=== PATIENT | male | born 2000 | race Caucasian/White ===

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

== ENCOUNTER 2022-06-10 22:04 | Emergency (ER) | payer OTHER ==
[2022-06-10 22:32] VITALS: BP 136/88; PULSE 77; RESP 16; TEMP 98.1
[2022-06-11] MEDS ORDERED: KETOROLAC 15 MG/ML 1 ML VIAL IM STA (00:57)
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
== END 2022-06-11 01:25 | disposition home or self-care (01) ==
LOC: EC 22:04
DX: G89.29 Other chronic pain (principal); M25.571 Pain in right ankle and joints of right foot; M79.661 Pain in right lower leg; F90.9 Attention-deficit hyperactivity disorder, unspecified type; Z88.3 Allergy status to other anti-infective agents; Z79.899 Other long term (current) drug therapy
CPT/HCPCS: 99284; J1885

== ENCOUNTER 2023-05-20 12:38 | Inpatient (IN) | payer MEDICAID, MEDICARE, OTHER ==
[2023-05-20] MEDS ORDERED: ZIPRASIDONE 20 MG VIAL IM STA (12:48)
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
[2023-05-20 22:25] LABS: HCT 41.4 % (39.0-53.0); HGB 14.4 gm/dL (13.0-17.5); MCH 30.6 pg (25.0-35.0); MCHC 34.8 g/dL (31.0-37.0); MCV 87.9 fL (80.0-100.0); Mean Platelet Volume 8.1; Platelet Count 191 k/uL (150-450); RBC 4.71 m/uL (4.30-5.90); RDW 12.7 % (11.5-15.5)
[2023-05-20 22:43] LABS: ALT 23 U/L (4-49); AST 36 U/L (17-59); African American GFR (CKD) >90 (>60 ml/min/1.73 sqM); Albumin 3.9 g/dL (3.5-5.0); Alkaline Phosphatase 68 U/L (38-126); Anion Gap 9 mmol/L; Blood Urea Nitrogen 10 mg/dL (9-20); Calcium 9.3 mg/dL (8.4-10.2); Carbon Dioxide 27 mmol/L (22-30); Chloride 102 mmol/L (98-107); Glucose 85 mg/dL (74-99); Non-African American GFR(CKD) >90 (>60 ml/min/1.73 sqM); Sodium 138 mmol/L (137-145); Total Bilirubin 0.6 mg/dL (0.2-1.3); Total Protein 6.3 g/dL (6.3-8.2)
[2023-05-20 23:23] LABS: Amorphous Sediment,Urine Occasional /hpf; Appearance,Urine Turbid (Clear); Bilirubin,Urine Negative (Negative); Blood,Urine Negative (Negative); Color,Urine Colorless; Glucose,Urine (UA) Negative (Negative); Ketones,Urine Negative (Negative); Leukocyte Esterase,Urine Negative (Negative); Mucus,Urine Rare /hpf; Nitrite,Urine Negative (Negative); Protein,Urine Negative (Negative); Specific Gravity,Urine 1.014 (1.001-1.035); Urobilinogen,Urine <2.0 mg/dL (<2.0)
[2023-05-20 23:35] LABS: Amphetamine Screen,Urine Not Detected (NotDetected); Barbiturate Screen,Urine Not Detected (NotDetected); Benzodiazepines Screen,Urine Detected (NotDetected); Cocaine Screen,Urine Not Detected (NotDetected); Methadone Screen, Urine Not Detected (NotDetected); Opiate Screen,Urine Not Detected (NotDetected); Oxycodone Screen, Urine Not Detected (NotDetected); Phencyclidine Screen,Urine Not Detected (NotDetected); Tricyclic Antidepressant,Urine Not Detected (NotDetected); Urn Cannabinoid Scrn Detected (NotDetected)
[2023-05-22] MEDS: MELATONIN 5 MG TABLET PO PRN ×2 (00:22→20:09)
[2023-05-23] MEDS ORDERED: MELATONIN 5 MG TABLET PO PRN (09:08)
[2023-05-23] MEDS ORDERED: PALIPERIDONE 6 MG TAB.ER.24 PO SCH (09:30)
[2023-05-23] MEDS ORDERED: DIVALPROEX ER 250 MG TAB.ER.24H PO SCH (09:30)
[2023-05-23] MEDS ORDERED: MAGNESIUM HYDROXIDE 2,400 MG/30 ML CUP PO PRN (16:55)
[2023-05-23] MEDS ORDERED: LORazepam 1 MG TAB PO PRN (16:55)
[2023-05-23] MEDS: MELATONIN 5 MG TABLET PO SCH (20:13)
[2023-05-23] MEDS: DIVALPROEX ER 250 MG TAB.ER.24H PO SCH (20:13)
[2023-05-23] MEDS: haloperidoL 5 MG TAB PO PRN (20:13)
[2023-05-23] MEDS: IBUPROFEN 600 MG TAB PO PRN (22:34)
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
[2023-05-24] MEDS ORDERED: PALIPERIDONE 6 MG TAB.ER.24 PO SCH (09:00)
[2023-05-24] MEDS: DIVALPROEX ER 250 MG TAB.ER.24H PO SCH (09:06)
[2023-05-24] MEDS: NICOTINE 14MG/24HR PATCH TRANSDERM SCH (09:09)
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
[2023-05-24] MEDS: MAG HYDROX/AL HYDROX/SIMETH 30 ML CUP PO PRN (13:56)
[2023-05-24 16:35] LABS: Chol/HDL Ratio 2.61 Ratio; LDL Cholesterol,Calculated 57.2 mg/dL (0.0-131.0); VLDL Calculation 13.78 mg/dL (5.00-40.00)
[2023-05-24] MEDS: haloperidoL 5 MG TAB PO PRN (18:54)
[2023-05-24] MEDS: hydrOXYzine pamoate 25 MG CAP PO PRN (18:54)
[2023-05-25] MEDS: PALIPERIDONE 6 MG TAB.ER.24 PO SCH ×2 (00:17→19:56)
[2023-05-25] MEDS: MELATONIN 5 MG TABLET PO SCH ×2 (00:17→19:56)
[2023-05-25] MEDS: hydrOXYzine pamoate 25 MG CAP PO PRN ×2 (09:05→19:56)
[2023-05-25] MEDS: NICOTINE 14MG/24HR PATCH TRANSDERM SCH (09:06)
[2023-05-25] MEDS: BENZOCAINE/MENTHOL LOZENG 1 EACH LOZENGE MUCOUS MEM PRN (09:43)
[2023-05-25] MEDS ORDERED: traZODone HCL 50 MG TAB PO PRN (10:11)
--- NOTE | 2023-05-25 10:12 | P.PN ---
Progress Note - Text Progress Note Date: 05/25/23 Interval history: PAtient was seen today wandering the hallways and was agreeable to speak to wr iter in the office. Patient claims that he is fine today, he still has an irritable tone. he was demanding percocet today from proposal writer. he was also asking for "anita" as well. he continue to speak to himself and has poor eye contact. he states that his anxiety is elevated. he has poor insight/judgment. he denies any ah or vh and denies any SI or HI. claims that he slept fairly last night and did not take his invega last night. Mental status examination: General Appearance: Patient appears to be thin, stated age is alert, responding to internal stimuli, irritable at times. Patient appears to have poor hygiene and grooming. Behavior: Patient is seated without any agitated behavior. Irritable. Speech: Patient's speech is fluent and nonpressured. Rambling. Mood/Affect: Patient reports their mood is depressed, affect is congruent and constricted. Suicidality/Homicidality: Patient denies having any homicidal ideation intent or plan. He denies any suicidal ideations, no intent or plan. Perceptions: Patient denies any visual hallucinations and denies any AH. Though content/process: Bizarre content, illogical. Loose associations. focused on controlled meds. Memory and concentration: AOX3, grossly intact for the purposes of this session Judgment and insight: poor IMPRESSIONS: Schizoaffective disorder depressive type Cannabis use disorder Nicotine dependence PLAN: -Patient is admitted under involuntary status to MHU for stabilization of psychiatric symptoms and safety. Patient has not signed adult voluntary form and medication consent and is placed in patient's chart. A second certification was completed and along with petition will be filed for court. -Medications : Paliperidone by mouth 6 mg daily at bedtime for psychosis/mood stabilization. Plan will be to transition patient on the long-acting injection. Trazodone prn daily at bedtime for insomnia. -Ativan and Haldol PRN for agitation/aggression -NRT - nicotine patch -SW on board for discharge planning. Encourage patient to participate in groups to work on coping skills. Will await deferral and court date.
[2023-05-25] MEDS: haloperidoL 5 MG TAB PO PRN (19:56)
[2023-05-25] MEDS: LORazepam 2 MG/ML INJ IM PRN (21:55)
[2023-05-26] MEDS: NICOTINE 14MG/24HR PATCH TRANSDERM SCH (08:04)
[2023-05-26] MEDS: hydrOXYzine pamoate 25 MG CAP PO PRN ×2 (08:13→20:28)
[2023-05-26] MEDS: BENZOCAINE/MENTHOL LOZENG 1 EACH LOZENGE MUCOUS MEM PRN (09:14)
--- NOTE | 2023-05-26 11:18 | P.PN ---
Progress Note - Text Progress Note Date: 05/26/23 Interval history: Patient was seen today wandering the hallways and was agreeable to speak to wr klaudia in the office. patient was concerned about another patient and her getting to a phone. PAtient continues to focus on percocet. he continues to ramble at times and is illogical at times. he has less of an irritable tone. also continues to focus on discharge. he states that his anxiety is elevated. he has poor insight/judgment. he denies any ah or vh and denies any SI or HI. claims that he slept fairly last night and has been taking his meds. Mental status examination: General Appearance: Patient appears to be thin, stated age is alert, responding to internal stimuli, irritable at times, improving mildly. Patient appears to have poor hygiene and grooming. Behavior: Patient is seated without any agitated behavior. Irritable, improving mildly Speech: Patient's speech is fluent and nonpressured. Rambling. talking to self. Mood/Affect: Patient reports their mood is "a bit better", affect is congruent and constricted. Suicidality/Homicidality: Patient denies having any homicidal ideation intent or plan. He denies any suicidal ideations, no intent or plan. Perceptions: Patient denies any visual hallucinations and denies any AH. Though content/process: Bizarre content, illogical. Loose associations. focused on controlled meds and also discharge Memory and concentration: AOX3, grossly intact for the purposes of this session Judgment and insight: chronically poor IMPRESSIONS: Schizoaffective disorder depressive type Cannabis use disorder Nicotine dependence PLAN: -Patient is admitted under involuntary status to MHU for stabilization of psychiatric symptoms and safety. Patient has not signed adult voluntary form and medication consent and is placed in patient's chart. -Medications : increase Paliperidone by mouth 9 mg daily at bedtime for psychosis/mood stabilization. plan to transition onto SLOAN. melatonin qhs for sleep. Plan will be to transition patient on the long-acting injection. Trazodone prn daily at bedtime for insomnia. -Ativan and Haldol PRN for agitation/aggression -NRT - nicotine patch -SW on board for discharge planning. Encourage patient to participate in groups to work on coping skills. Will await deferral tomorrow.
[2023-05-26] MEDS: MAG HYDROX/AL HYDROX/SIMETH 30 ML CUP PO PRN (14:45)
[2023-05-26] MEDS: haloperidoL 5 MG TAB PO PRN (18:21)
[2023-05-26] MEDS: LORazepam 2 MG/ML INJ IM PRN (18:21)
[2023-05-26] MEDS: PALIPERIDONE 3 MG TAB.ER.24 PO SCH (20:28)
[2023-05-26] MEDS: MELATONIN 3 MG TABLET PO SCH (20:28)
[2023-05-26] MEDS: ACETAMINOPHEN TAB 325 MG TAB PO PRN (20:30)
[2023-05-26] MEDS: NICOTINE GUM (POLACRILEX) 2 MG GUM BUCCAL PRN (21:06)
[2023-05-27] MEDS: hydrOXYzine pamoate 25 MG CAP PO PRN (09:20)
[2023-05-27] MEDS: NICOTINE 14MG/24HR PATCH TRANSDERM SCH (09:35)
[2023-05-27] MEDS: IBUPROFEN 600 MG TAB PO PRN (11:19)
[2023-05-27] MEDS ORDERED: PALIPERIDONE IM 234 MG/1.5 ML SYG IM STA (11:24)
[2023-05-27] MEDS ORDERED: ACETAMINOPHEN TAB 500 MG TAB PO STA (11:27)
--- NOTE | 2023-05-27 13:29 | P.PN ---
Progress Note - Text Progress Note Date: 05/27/23 Interval history: Patient was seen today wandering the hallways and was agreeable to speak to wr iter in the office. Patient continues to ramble at times, continues to be fixated on pain medications. He required a Haldol and Ativan IM when necessary yesterday due to agitation. When asked about a patient spoke about not liking another patient on the unit that was "pacing me off". He failed to elaborate more on this. He continues to mumble at times, talk to himself however this is improving. He was more directable. Improvement in hygiene and grooming. Denying any irritability or mood swings. We spoke about the benefits of transitioning onto long-acting injection and patient was agreeable to take Invega Sustenna today. He claims that he spoke with his ip attorney and he signed the deferral today. he has poor insight/judgment, mildly improving. he denies any ah or vh and denies any SI or HI. claims that he slept fairly last night Mental status examination: General Appearance: Patient appears to be thin, stated age is alert, less responding to internal stimuli, more directable, improving mildly. Patient appears to have improving hygiene and grooming. Behavior: Patient is seated without any agitated behavior. not Irritable Speech: Patient's speech is fluent and nonpressured. Rambling. talking to self less Mood/Affect: Patient reports their mood is "better", affect is congruent and constricted. Suicidality/Homicidality: Patient denies having any homicidal ideation intent or plan. He denies any suicidal ideations, no intent or plan. Perceptions: Patient denies any visual hallucinations and denies any AH. Though content/process: illogical. Loose associations. focused on controlled meds and also discharge Memory and concentration: AOX3, grossly intact for the purposes of this session Judgment and insight: chronically poor, improving mildly IMPRESSIONS: Schizoaffective disorder depressive type Cannabis use disorder Nicotine dependence PLAN: -Patient is admitted under involuntary status to MHU for stabilization of psychiatric symptoms and safety. Patient has not signed adult voluntary form and medication consent and is placed in patient's chart. -Medications : Paliperidone by mouth 9 mg daily at bedtime for psychosis/mood stabilization, will taper down. SLOAN loading dose today invega sustenna 234 mg IM today and next dose will give tuesday vs tuesday. melatonin qhs for sleep. Trazodone prn daily at bedtime for insomnia. -Ativan and Haldol PRN for agitation/aggression -NRT - nicotine patch -SW on board for discharge planning. Encourage patient to participate in groups to work on coping skills. patient deferred with his ip attorney. will consider p ossible d/c to [facility] tuesday if patient is doing better and receives his second dose of invega sustenna.
[2023-05-27] MEDS: BENZOCAINE/MENTHOL LOZENG 1 EACH LOZENGE MUCOUS MEM PRN (16:06)
[2023-05-27] MEDS: LORazepam 2 MG/ML INJ IM PRN (16:25)
[2023-05-27] MEDS: HALOPERIDOL LACTATE 5 MG/ML 1 ML VIAL IM PRN (16:25)
[2023-05-27] MEDS: MELATONIN 3 MG TABLET PO SCH (21:08)
[2023-05-27] MEDS: PALIPERIDONE 3 MG TAB.ER.24 PO SCH (21:08)
[2023-05-28] MEDS: NICOTINE 14MG/24HR PATCH TRANSDERM SCH (08:04)
[2023-05-28] MEDS ORDERED: PALIPERIDONE 3 MG TAB.ER.24 PO SCH (09:00)
[2023-05-28] MEDS: IBUPROFEN 600 MG TAB PO PRN (09:36)
--- NOTE | 2023-05-28 10:47 | P.PN ---
Progress Note - Text Progress Note Date: 05/28/23 Interval history: Patient was seen today wandering the hallways and was agreeable to speak to wr klaudia. Patient continues to be focused on his pain medications. He states that he was having a headache this morning. He was agreeable to try Tylenol. He apparently was agitated yesterday while on the phone and punched the wall. He needed Haldol and Ativan IM as a when necessary for agitation yesterday. He appeared to have improvement in hygiene and grooming today. States that he slept fairly last night. He continues to ramble at times, at times illogical. He received the Invega Sustenna loading dose yesterday tolerated it well. he has chronically poor insight/judgment, mildly improving. he denies any ah or vh and denies any SI or HI. Mental status examination: General Appearance: Patient appears to be thin, stated age is alert, not responding to internal stimuli, more directable, improving mildly. Patient appears to have improving hygiene and grooming. Behavior: Patient is seated without any agitated behavior. not Irritable Speech: Patient's speech is fluent and nonpressured. Rambling. talking to self less Mood/Affect: Patient reports their mood is "ok", affect is congruent and constricted. Suicidality/Homicidality: Patient denies having any homicidal ideation intent or plan. He denies any suicidal ideations, no intent or plan. Perceptions: Patient denies any visual hallucinations and denies any AH. Though content/process: illogical. Loose associations. focused on controlled meds and also discharge Memory and concentration: AOX3, grossly intact for the purposes of this session Judgment and insight: chronically poor, improving mildly IMPRESSIONS: Schizoaffective disorder depressive type Cannabis use disorder Nicotine dependence PLAN: -Patient is admitted under involuntary status to MHU for stabilization of psychiatric symptoms and safety. Patient has not signed adult voluntary form and medication consent and is placed in patient's chart. -Medications : decrease Paliperidone by mouth 6 mg daily at bedtime for psychosis/mood stabilization, will taper down. SLOAN loading dose given on 05/27, next invega sustenna 156 mg IM will be given on tuesday. melatonin qhs for sleep. Trazodone prn daily at bedtime for insomnia. added lithium ER 450 mg daily for mood stabilization/aggression. -Ativan and Haldol PRN for agitation/aggression -NRT - nicotine patch -SW on board for discharge planning. Encourage patient to participate in groups to work on coping skills. patient deferred with his finance attorney. will consider possible d/c to [facility] tuesday if patient is doing better and receives his second dose of invega sustenna.
[2023-05-28] MEDS ORDERED: ACETAMINOPHEN TAB 500 MG TAB PO ONE (11:00)
[2023-05-28] MEDS: LITHIUM CARBONATE ER 450 MG TABLET.ER PO SCH (11:05)
[2023-05-28 11:23] LABS: Glucose,Whole Blood 89 mg/dL (70-110)
[2023-05-28] MEDS: NICOTINE GUM (POLACRILEX) 2 MG GUM BUCCAL PRN (11:54)
[2023-05-28] MEDS: LORazepam 2 MG/ML INJ IM PRN (16:58)
[2023-05-28] MEDS: HALOPERIDOL LACTATE 5 MG/ML 1 ML VIAL IM PRN (16:58)
[2023-05-28] MEDS: MAG HYDROX/AL HYDROX/SIMETH 30 ML CUP PO PRN (18:57)
[2023-05-28] MEDS: MELATONIN 3 MG TABLET PO SCH (21:44)
[2023-05-28] MEDS: PALIPERIDONE 6 MG TAB.ER.24 PO SCH (21:44)
[2023-05-29] MEDS: BENZOCAINE/MENTHOL LOZENG 1 EACH LOZENGE MUCOUS MEM PRN ×2 (02:41→09:10)
[2023-05-29] MEDS: NICOTINE 14MG/24HR PATCH TRANSDERM SCH (08:49)
[2023-05-29] MEDS: LITHIUM CARBONATE ER 450 MG TABLET.ER PO SCH (08:49)
[2023-05-29] MEDS: NICOTINE GUM (POLACRILEX) 2 MG GUM BUCCAL PRN (08:49)
[2023-05-29] MEDS: hydrOXYzine pamoate 25 MG CAP PO PRN ×2 (08:52→15:57)
--- NOTE | 2023-05-29 10:58 | P.PN ---
Progress Note - Text Progress Note Date: 05/29/23 Interval history: Patient was seen today wandering the hallways and was agreeable to speak to wr iter. The patient was near the nurse's desk talking to staff members. He appeared to be less agitated today and more directable during conversation. Continues to have fairly chronically poor insight and poor judgment. He was somewhat focused on his medications and also discharge date. He appeared to have improvement in hygiene and grooming today. States that he slept fairly last night. He continues to ramble at times, he is more logical. He received the Invega Sustenna loading dose already and tolerated it well, he is said to be due for his second dose tomorrow but she is expecting. he denies any ah or vh and denies any SI or HI. Mental status examination: General Appearance: Patient appears to be thin, stated age is alert, not responding to internal stimuli, more directable, improving mildly. Patient appears to have improving hygiene and grooming. Behavior: Patient is seated without any agitated behavior. Speech: Patient's speech is fluent and nonpressured. Rambling. talking to self less Mood/Affect: Patient reports their mood is "fine", affect is congruent and constricted. Suicidality/Homicidality: Patient denies having any homicidal ideation intent or plan. He denies any suicidal ideations, no intent or plan. Perceptions: Patient denies any visual hallucinations and denies any AH. Though content/process: illogical. Loose associations. focused on controlled me ds and also discharge. somatic Memory and concentration: AOX3, grossly intact for the purposes of this session Judgment and insight: chronically poor, improving mildly IMPRESSIONS: Schizoaffective disorder depressive type Cannabis use disorder Nicotine dependence PLAN: -Patient is admitted under involuntary status to MHU for stabilization of psychiatric symptoms and safety. Patient has not signed adult voluntary form and medication consent and is placed in patient's chart. -Medications : Paliperidone by mouth 6 mg daily at bedtime for psychosis/mood stabilization, will taper down. SLOAN loading dose given on 05/27, next invega sustenna 156 mg IM will be given on tuesday. melatonin qhs for sleep. Trazodone prn daily at bedtime for insomnia. continue lithium ER 450 mg daily for mood stabilization/aggression. -Ativan and Haldol PRN for agitation/aggression -NRT - nicotine patch -SW on board for discharge planning. Encourage patient to participate in groups to work on coping skills. patient deferred with his ip technology transactions attorney. will consider possible d/c to [facility] tuesday if patient is doing better and receives his second dose of invega sustenna.
[2023-05-29] MEDS: IBUPROFEN 600 MG TAB PO PRN (15:58)
[2023-05-29] MEDS: PALIPERIDONE 6 MG TAB.ER.24 PO SCH (20:24)
[2023-05-29] MEDS: MELATONIN 5 MG TABLET PO SCH (20:24)
[2023-05-30] MEDS: LITHIUM CARBONATE ER 450 MG TABLET.ER PO SCH (08:05)
[2023-05-30] MEDS: ACETAMINOPHEN TAB 325 MG TAB PO PRN (08:05)
[2023-05-30] MEDS: NICOTINE 14MG/24HR PATCH TRANSDERM SCH (08:05)
[2023-05-30] MEDS: BENZOCAINE/MENTHOL LOZENG 1 EACH LOZENGE MUCOUS MEM PRN ×3 (09:28→23:09)
[2023-05-30] MEDS ORDERED: PALIPERIDONE IM 156 MG/ML SYG IM STA (09:49)
[2023-05-30] MEDS ORDERED: ZIPRASIDONE 20 MG VIAL IM STA (09:57)
[2023-05-30] MEDS: LORazepam 2 MG/ML INJ IM PRN (09:59)
[2023-05-30] MEDS ORDERED: ZIPRASIDONE 20 MG VIAL IM ONE (10:00)
[2023-05-30] MEDS ORDERED: HALOPERIDOL LACTATE 5 MG/ML 1 ML VIAL IM PRN (10:58)
--- NOTE | 2023-05-30 11:08 | P.MHFACE ---
Face to Face Restrain/Seclus - Evaluation Patient's Immediate Situation: Endangers self safety, Endangers others' safety, Endangers staff safety Patient's Immediate Situation - Comment: patient was seen by financial writer for follow up and was agitated when discussing discharge planning going to residential. Patient adamnatly refused residential and became agitated, aggressive, yelling and threatening. he postured as to fight and was slamming things in the hallways. MR Marcial was called. Patient's Reaction to the Intervention: Uncooperative, Hostile, Belligerent, Aggressive, Combative, Resistive to care Patient's Reaction to the Intervention - Comment: uncooperative, aggressive, threatening. Patient's Medical & Behavioral Condition: Awake, Agitated Patient's Medical & Behavioral Condition - Comment: schizophrenia Need to Continue or Terminate Restraint or Seclusion: Continue Need to Continue or Terminate Restraint/Seclusion - Comment: patient received IM geodon and ativan, was directed to the secclusion room with assistance from staff and agreed to lay down on the bed until medications took hold. Face to Face Eval of Restraint Date: 05/30/23 Face to Face Eval of Restraint Time: 10:15
--- NOTE | 2023-05-30 11:14 | P.PN ---
Progress Note - Text Progress Note Date: 05/30/23 Interval history: Patient was seen today wandering the hallways and was agreeable to speak to wr klaudia. Patient was initially cooperative with policy writer however was rambling at times, illogical. He claims that his mood is "fine" and denies any depression or anxiety at this time. He continues to be fairly somatically preoccupied and continues to focus on controlled pain medications. Continues to have fairly poor insight and judgment. Poor decision making. States that he slept fairly last night. He appeared to have improvement in hygiene and grooming today. he denies any ah or vh and denies any SI or HI. while discussing dishcarge planning patient became loud, aggressive and beligerent and adamantly refused going to [facility], due to escalation of patients aggression he was asked to leave the room and ended the interview. Mr rollins was called shortly afterwards and pt was given IMs and was escorted to the seccludion room. Mental status examination: General Appearance: Patient appears to be thin, stated age is alert, not responding to internal stimuli, more directable, improving mildly. Patient appears to have improving hygiene and grooming. Behavior: Patient is seated without any agitated behavior. uncoopertaive today Speech: Patient's speech is fluent and nonpressured. Rambling. talking to self Mood/Affect: Patient reports their mood is "ok", affect is congruent and irritable, impulsive. Suicidality/Homicidality: Patient denies having any homicidal ideation intent or plan. He denies any suicidal ideations, no intent or plan. Perceptions: Patient denies any visual hallucinations and denies any AH. Though content/process: illogical. Loose associations. focused on controlled meds and also discharge. somatic Memory and concentration: AOX3, grossly intact for the purposes of this session Judgment and insight: chronically poor IMPRESSIONS: Schizoaffective disorder depressive type Cannabis use disorder Nicotine dependence PLAN: -Patient is admitted under involuntary status to MHU for stabilization of psychiatric symptoms and safety. Patient has not signed adult voluntary form and medication consent and is placed in patient's chart. -Medications : d/c Paliperidone by mouth and will not give second dose of INvega SLOAN today. Will switch patient to Prolixin 5 mg bid for psychosis/mood stabilization. will need to eventually transition patient onto SLOAN. melatonin qhs for sleep. Trazodone prn daily at bedtime for insomnia. continue lithium ER 450 mg daily for mood stabilization/aggression, consider switching to depakote or other mood stabilizer if not helping. -Ativan and Haldol PRN for agitation/aggression -NRT - nicotine patch -SW on board for discharge planning. Encourage patient to participate in groups to work on coping skills. patient deferred with his litigation attorney associate. patient adamantly is refusing [facility] placement and communicated this with [facility], will look at discharging back to his apartment with increased [facility] services upon release.
[2023-05-30] MEDS: NICOTINE GUM (POLACRILEX) 2 MG GUM BUCCAL PRN (11:56)
[2023-05-30] MEDS: MAG HYDROX/AL HYDROX/SIMETH 30 ML CUP PO PRN (13:50)
[2023-05-30] MEDS: MELATONIN 5 MG TABLET PO SCH (20:42)
[2023-05-30] MEDS: hydrOXYzine pamoate 25 MG CAP PO PRN (23:09)
[2023-05-31] MEDS: BENZOCAINE/MENTHOL LOZENG 1 EACH LOZENGE MUCOUS MEM PRN ×2 (08:44→12:20)
[2023-05-31] MEDS: LITHIUM CARBONATE ER 450 MG TABLET.ER PO SCH (08:44)
[2023-05-31] MEDS: NICOTINE GUM (POLACRILEX) 2 MG GUM BUCCAL PRN (08:51)
[2023-05-31] MEDS: NICOTINE 14MG/24HR PATCH TRANSDERM SCH (08:59)
--- NOTE | 2023-05-31 11:46 | P.PN ---
Progress Note - Text Progress Note Date: 05/31/23 Interval history: Patient was seen today wandering the hallways and also participating in [employer] group and was agreeable to speak to administrative underwriter. He appeared to have improvement in hygiene and grooming today. Patient states that he called his uncle to come and pick him up today in the afternoon for discharge. He continues to be irrational, irritable and hostile with administrative underwriter. He was upset when he found out that he was not being discharged today. He was illogical at times, defensive and intrusive. he denies any ah or vh and denies any SI or HI. was not able to reflect back on what had occured yesterday and states that he didnt want to go to [facility] because "thats where my trauma started". while discussing dishcarge planning patient became loud, aggressive. Mental status examination: General Appearance: Patient appears to be thin, stated age is alert, not responding to internal stimuli, less directable, improving mildly. Patient appears to have improving hygiene and grooming. Behavior: Patient is seated without any agitated behavior. uncoopertaive today/superficial. Speech: Patient's speech is fluent and nonpressured. Rambling. Mood/Affect: Patient reports their mood is "ok", affect is congruent and irritable, impulsive. Suicidality/Homicidality: Patient denies having any homicidal ideation intent or plan. He denies any suicidal ideations, no intent or plan. Perceptions: Patient denies any visual hallucinations and denies any AH. Though content/process: illogical. Loose associations. focused on controlled meds and also discharge. somatic Memory and concentration: AOX3, grossly intact for the purposes of this session Judgment and insight: chronically poor IMPRESSIONS: Schizoaffective disorder depressive type Cannabis use disorder Nicotine dependence PLAN: -Patient is admitted under involuntary status to MHU for stabilization of psychiatric symptoms and safety. Patient has not signed adult voluntary form and medication consent and is placed in patient's chart. -Medications : increase Prolixin 5 mg tid for psychosis/mood stabilization. will need to eventually transition patient onto SLOAN. melatonin qhs for sleep. increase Trazodone 150 mg daily at bedtime for insomnia. discontinue lithium ER due to ineffectiveness and replace with depakote 1000 mg qhs for mood stabilization/aggression -Ativan and Haldol PRN for agitation/aggression -NRT - nicotine patch -SW on board for discharge planning. Encourage patient to participate in groups to work on coping skills. patient deferred with his attorney law clerk. will look at discharging back to his apartment with increased [facility] services upon release. patient is not yet stable for psychiatric perspective, is bizarre, irratinal and impulsive, will need to transition patient onto SLOAN.
[2023-05-31] MEDS: DIVALPROEX ER 500 MG TAB.ER.24H PO SCH (21:11)
[2023-05-31] MEDS: MELATONIN 5 MG TABLET PO SCH (21:12)
[2023-05-31] MEDS: traZODone HCL 50 MG TAB PO SCH (21:12)
[2023-06-01] MEDS: NICOTINE GUM (POLACRILEX) 2 MG GUM BUCCAL PRN (08:55)
[2023-06-01] MEDS: NICOTINE 14MG/24HR PATCH TRANSDERM SCH (08:55)
[2023-06-01] MEDS: ACETAMINOPHEN TAB 325 MG TAB PO PRN (08:57)
[2023-06-01 09:02] VITALS: RESP 20
[2023-06-01] MEDS: BENZOCAINE/MENTHOL LOZENG 1 EACH LOZENGE MUCOUS MEM PRN (09:34)
[2023-06-01] MEDS ORDERED: fluPHENAZine DECANOATE 25 MG/ML 5ML MDV IM SCH (12:00)
--- NOTE | 2023-06-01 12:34 | P.PN ---
Progress Note - Text Progress Note Date: 06/01/23 Interval history: Patient was seen today wandering the hallways and also participating in activ [employer] group and was agreeable to speak to check writer. Patient states that he is feeling a lot calmer today. He claimed that he is tolerating medications fairly well. He is denying any side effects at this time. He states that he has good friends and support at home. We spoke more about discharge planning. He is agreeable to take the long-acting injection today and hopeful for discharge tomorrow. States that he is trying to go to groups apart to space this as he can. Showing an improvement in impulsivity and clear thoughts, more directable. he denies any ah or vh and denies any SI or HI. Mental status examination: General Appearance: Patient appears to be thin, stated age is alert, not responding to internal stimuli, directable, improving mildly. Patient appears to have improving hygiene and grooming. Behavior: Patient is seated without any agitated behavior. Her cooperative today. Speech: Patient's speech is fluent and nonpressured. Mood/Affect: Patient reports their mood is "ok", affect is congruent and improving Suicidality/Homicidality: Patient denies having any homicidal ideation intent or plan. He denies any suicidal ideations, no intent or plan. Perceptions: Patient denies any visual hallucinations and denies any AH. Though content/process: illogical. Loose associations. focused on controlled meds and also discharge. somatic Memory and concentration: AOX3, grossly intact for the purposes of this session Judgment and insight: chronically poor, improving mildly IMPRESSIONS: Schizoaffective disorder depressive type Cannabis use disorder Nicotine dependence PLAN: -Patient is admitted under involuntary status to MHU for stabilization of psychiatric symptoms and safety. Patient has not signed adult voluntary form and medication consent and is placed in patient's chart. -Medications : Prolixin 5 mg tid for psychosis/mood stabilization. will give Prolixin D 37.5 mg IM today, next dose will be due in 2 weeks. melatonin qhs for sleep. Trazodone 150 mg daily at bedtime for insomnia. continue depakote 1000 mg qhs for mood stabilization/aggression -Ativan and Haldol PRN for agitation/aggression -NRT - nicotine patch -SW on board for discharge planning. Encourage patient to participate in groups to work on coping skills. patient deferred with his staple cutter. will look at discharging back to his apartment with increased [facility] services and next step. hopeful for discharge tomorrow.
[2023-06-01] MEDS: MAG HYDROX/AL HYDROX/SIMETH 30 ML CUP PO PRN (18:37)
[2023-06-01] MEDS: traZODone HCL 50 MG TAB PO SCH (21:12)
[2023-06-01] MEDS: MELATONIN 5 MG TABLET PO SCH (21:12)
[2023-06-01] MEDS: DIVALPROEX ER 500 MG TAB.ER.24H PO SCH (21:12)
[2023-06-02] MEDS: NICOTINE 14MG/24HR PATCH TRANSDERM SCH (08:43)
[2023-06-02 08:47] VITALS: BP 143/79; PULSE 77; TEMP 97
[2023-06-02] MEDS: NICOTINE GUM (POLACRILEX) 2 MG GUM BUCCAL PRN (08:55)
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
== END 2023-06-02 12:32 | disposition home or self-care (01) | DRG 750 ==
LOC: EC 12:38 → 3MHU 05-23 16:50
PROVIDERS: ADMIT Psychiatry & Neurology Psychiatry; ATTEND Psychiatry & Neurology Psychiatry
DX: F25.1 Schizoaffective disorder, depressive type (principal); F12.10 Cannabis abuse, uncomplicated; F17.210 Nicotine dependence, cigarettes, uncomplicated; F43.10 Post-traumatic stress disorder, unspecified; F43.20 Adjustment disorder, unspecified; F79 Unspecified intellectual disabilities; F90.9 Attention-deficit hyperactivity disorder, unspecified type; G47.00 Insomnia, unspecified; R45.851 Suicidal ideations; R45.1 Restlessness and agitation; Z79.899 Other long term (current) drug therapy; Z87.820 Personal history of traumatic brain injury; Z60.2 Problems related to living alone; Z86.14 Personal history of Methicillin resistant Staphylococcus aureus infection; R51.9 Headache, unspecified
CPT/HCPCS: 36415; 80053; 80061; 80306; 81001; 82075; 83036; 84443; 85027; 87635; 96372; 99285

== ENCOUNTER 2023-07-11 19:45 | Emergency (ER) | payer OTHER ==
[2023-07-11 20:05] VITALS: BP 125/98; PULSE 92; RESP 18; TEMP 98.2
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
== END 2023-07-11 21:09 | disposition home or self-care (01) ==
LOC: EC 19:45
DX: T18.108A Unspecified foreign body in esophagus causing other injury, initial encounter (principal); F41.9 Anxiety disorder, unspecified; F32.A Depression, unspecified; F90.9 Attention-deficit hyperactivity disorder, unspecified type; Z79.899 Other long term (current) drug therapy
CPT/HCPCS: 99283

== ENCOUNTER 2023-12-04 13:34 | Inpatient (IN) | payer MEDICAID, OTHER ==
--- NOTE | 2023-12-04 15:14 | XR ---
EXAMINATION TYPE: XR chest 2V DATE OF EXAM: 12/04/2023 3:07 PM CLINICAL INDICATION:Male, 23 years old with history of cough; [facility] COMPARISON: None TECHNIQUE: XR chest 2V Frontal and lateral views of the chest. FINDINGS: Lungs/Pleura: There is no evidence of pleural effusion, focal consolidation, or pneumothorax. Pulmonary vascularity: Unremarkable. Heart/mediastinum: Cardiomediastinal silhouette is unremarkable. Musculoskeletal: No acute osseous pathology. Multiple remote right-sided rib fractures. IMPRESSION: No acute cardiopulmonary disease/process.
[2023-12-04] MEDS: IBUPROFEN 800 MG TAB PO STA (15:56)
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
[2023-12-04] MEDS ORDERED: MAGNESIUM HYDROXIDE 2,400 MG/30 ML CUP PO PRN (19:46)
[2023-12-04] MEDS ORDERED: MAG HYDROX/AL HYDROX/SIMETH 355 ML BOTTLE PO PRN (19:46)
[2023-12-04] MEDS ORDERED: HALOPERIDOL LACTATE 5 MG/ML 1 ML VIAL IM PRN (19:51)
[2023-12-04] MEDS: LORazepam 1 MG TAB PO PRN (20:57)
[2023-12-04] MEDS: haloperidoL 5 MG TAB PO PRN (20:57)
[2023-12-04] MEDS: DIVALPROEX 250 MG TABLET.DR PO SCH (21:01)
--- NOTE | 2023-12-05 04:47 | P.PN ---
Progress Note - Text Progress Note Date: 12/05/23 Attempted to see patient in the mental health unit on 12/03 at 2200. Informed by the mental health unit RN that the patient was sedated and inappropriate for evaluation at this time.
[2023-12-05] MEDS: NICOTINE 14MG/24HR PATCH TRANSDERM SCH (10:14)
[2023-12-05 13:06] LABS: Basophils % (A) 0 %; Eosinophils # (A) 0.2 k/uL (0-0.7); Eosinophils % (A) 2 %; HCT 46.9 % (39.0-53.0); HGB 16.2 gm/dL (13.0-17.5); Lymphocytes # (A) 1.4 k/uL (1.0-4.8); Lymphocytes % (A) 15 %; MCH 30.5 pg (25.0-35.0); MCHC 34.6 g/dL (31.0-37.0); MCV 88.4 fL (80.0-100.0); Mean Platelet Volume 7.4; Monocytes # (A) 0.5 k/uL (0-1.0); Monocytes % (A) 6 %; Neutrophils # (A) 6.7 k/uL (1.3-7.7); Neutrophils % (A) 75 %; Platelet Count 291 k/uL (150-450); RBC 5.31 m/uL (4.30-5.90); RDW 12.2 % (11.5-15.5)
[2023-12-05 13:12] LABS: ALT 13 U/L (4-49); AST 19 U/L (17-59); African American GFR (CKD) >90 (>60 ml/min/1.73 sqM); Albumin 4.9 g/dL (3.5-5.0); Alkaline Phosphatase 68 U/L (38-126); Anion Gap 10 mmol/L; Blood Urea Nitrogen 12 mg/dL (9-20); Calcium 9.8 mg/dL (8.4-10.2); Carbon Dioxide 27 mmol/L (22-30); Chloride 104 mmol/L (98-107); Glucose 84 mg/dL (74-99); Non-African American GFR(CKD) >90 (>60 ml/min/1.73 sqM); Potassium 4.2 mmol/L (3.5-5.1); Sodium 141 mmol/L (137-145); Total Bilirubin 0.8 mg/dL (0.2-1.3); Total Protein 7.8 g/dL (6.3-8.2)
--- NOTE | 2023-12-05 21:51 | P.HP ---
Psychiatric H&P - . H&P Date: 12/05/23 History & Physical: Allergies Allergy/AdvReac Type Severity Reaction Status Date / Time mirtazapine [From Remeron] AdvReac over Verified 12/04/23 16:48 heated/sweating Vital Signs Temp 98 F 12/05/23 07:13 Pulse 86 12/05/23 07:13 Resp 18 12/05/23 07:13 BP 133/84 12/05/23 07:13 Pulse Ox 99 12/05/23 07:13 FiO2 Intake & Output 12/05/23 12/05/23 12/06/23 06:59 18:59 06:59 Weight 70.817 kg Laboratory Last Values WBC 9.0 k/uL (3.8-10.6) 12/05/23 12:20 RBC 5.31 m/uL (4.30-5.90) 12/05/23 12:20 Hgb 16.2 gm/dL (13.0-17.5) 12/05/23 12:20 Hct 46.9 % (39.0-53.0) 12/05/23 12:20 MCV 88.4 fL (80.0-100.0) 12/05/23 12:20 MCH 30.5 pg (25.0-35.0) 12/05/23 12:20 MCHC 34.6 g/dL (31.0-37.0) 12/05/23 12:20 RDW 12.2 % (11.5-15.5) 12/05/23 12:20 Plt Count 291 k/uL (150-450) 12/05/23 12:20 MPV 7.4 12/05/23 12:20 Neutrophils % 75 % 12/05/23 12:20 Lymphocytes % 15 % 12/05/23 12:20 Monocytes % 6 % 12/05/23 12:20 Eosinophils % 2 % 12/05/23 12:20 Basophils % 0 % 12/05/23 12:20 Neutrophils # 6.7 k/uL (1.3-7.7) 12/05/23 12:20 Lymphocytes # 1.4 k/uL (1.0-4.8) 12/05/23 12:20 Monocytes # 0.5 k/uL (0-1.0) 12/05/23 12:20 Eosinophils # 0.2 k/uL (0-0.7) 12/05/23 12:20 Basophils # 0.0 k/uL (0-0.2) 12/05/23 12:20 Sodium 141 mmol/L (137-145) 12/05/23 12:20 Potassium 4.2 mmol/L (3.5-5.1) 12/05/23 12:20 Chloride 104 mmol/L (98-107) 12/05/23 12:20 Carbon Dioxide 27 mmol/L (22-30) 12/05/23 12:20 Anion Gap 10 mmol/L 12/05/23 12:20 BUN 12 mg/dL (9-20) 12/05/23 12:20 Creatinine 0.75 mg/dL (0.66-1.25) 12/05/23 12:20 Est GFR (CKD-EPI)AfAm >90 (>60 ml/min/1.73 sqM) 12/05/23 12:20 Est GFR (CKD-EPI)NonAf >90 (>60 ml/min/1.73 sqM) 12/05/23 12:20 Glucose 84 mg/dL (74-99) 12/05/23 12:20 Calcium 9.8 mg/dL (8.4-10.2) 12/05/23 12:20 Total Bilirubin 0.8 mg/dL (0.2-1.3) 12/05/23 12:20 AST 19 U/L (17-59) 12/05/23 12:20 ALT 13 U/L (4-49) 12/05/23 12:20 Alkaline Phosphatase 68 U/L (38-126) 12/05/23 12:20 Total Protein 7.8 g/dL (6.3-8.2) 12/05/23 12:20 Albumin 4.9 g/dL (3.5-5.0) 12/05/23 12:20 TSH 1.420 mIU/L (0.465-4.680) 12/05/23 12:20 Influenza Type A (PCR) Not Detected (Not Detectd) 12/04/23 13:49 Influenza Type B (PCR) Not Detected (Not Detectd) 12/04/23 13:49 RSV (PCR) Not Detected (Not Detectd) 12/04/23 13:49 SARS-CoV-2 (PCR) Not Detected (Not Detectd) 12/04/23 13:49 12/05/23 21:50 Psychiatric Evaluation Identifying Data: Mr. Pickett is 23 years old, single, W. M., who lives in [place], [place], who lives in an apt. by himself. Chief Complaint: I have cough History of Psychiatric Illness- Current psychiatric History: The patient noted that he was brought to the hospital for cough. As per patients chart, the patient was acting strange and starring in space. He seems to display these symptoms when getting worse. The patient reports feeling alright. He denied hearing voices, or feeling paranoid. He denied being Depressed or Anxious. The patient noted that he feels tired. He was also concern about his court hearing which is scheduled for tomorrow, as per patient. The patient kept on saying that he wants to go home. He was gently redirected. Past Psychiatric History: The patient was first admitted to the hospital at age 11. The patient does not know the details. He reports several admissions since then. He was unable to give and meaningful history of his psychiatric illness. Two attempts were made to contact her mother, with patients consent but failed. During his last admission to this hospital, he was hearing voices, not making any sense and acting agitated. Past Medication History: The patient does not remember his medications. As per chart. he was discharged on Poloxin D 50 mg twice a month. Last dose given 11/30/2023 Leading questions: The patient denied /admitted to Depression and Anxiety. Denied SI or HI. Denied symptoms consistent with psychosis Drugs and alcohol history: The patient denied. He has a diagnosis of Marijuana abuse Tobacco use: Vapes Past Medical history: None Family History of Psychiatric Disorder: The patient denied. Social History and Family History: Born and raised: The patient was born and raised in [place], [place]. He grew-up with two siblings. He dropped out in 11th grade. He was in special ED. He has no significant history of job. OTC: None. Allergies: Remeron Objective: MSE: Alert and attentive. Orientation times two. Dressed and Groomed: Adequately. Pleasant and cooperative. Psychomotor Activity: Moderately reduced. Mild akathisia noted. He appears mildly stiffness. Speech: Normal in tone, quality and underproductive. Mood: Good Affect Flat SI or HI: None. Perceptual disturbance: None. Thought Content: No overt paranoia or delusional thinking noted. Thought Process: Normal. Cognition: Intact Judgment and Insight: Poor AIMS: Normal Labs: Non available, ordered. Diagnosis: Plan and Recommendations: Continue current Medications. Add Cogentin 0.5 mg po daily.Monitor MS and side effects of medications and adjust medications accordingly. Provide supportive psychotherapy and psychoeducation. The patient provided Substance abuse counseling. Smoke cessation therapy. The patient to attend [facility]. CBC with Diff, CMP, TSH, Lipid Profile, HbA1c, EKG to be ordered after reviewing the recent results. ER labs revied. Medication Consent with explanation of risk/benefits and side effects: Explained and obtained.
--- NOTE | 2023-12-06 01:43 | P.PN ---
Progress Note - Text Progress Note Date: 12/06/23 Attempted to see the patient in the mental health unit. The patient refused to be seen or be evaluated.
[2023-12-06] MEDS: BENZTROPINE MESYLATE 0.5 MG TAB PO SCH ×2 (08:07→10:06)
[2023-12-06 10:44] LABS: Appearance,Urine Clear (Clear); Bilirubin,Urine Negative (Negative); Blood,Urine Negative (Negative); Color,Urine Colorless; Glucose,Urine (UA) Negative (Negative); Ketones,Urine Negative (Negative); Leukocyte Esterase,Urine Negative (Negative); Nitrite,Urine Negative (Negative); Protein,Urine Negative (Negative); Specific Gravity,Urine 1.007 (1.001-1.035); Urobilinogen,Urine <2.0 mg/dL (<2.0)
[2023-12-06 11:18] LABS: Amphetamine Screen,Urine Not Detected (NotDetected); Barbiturate Screen,Urine Not Detected (NotDetected); Benzodiazepines Screen,Urine Detected (NotDetected); Cocaine Screen,Urine Not Detected (NotDetected); Methadone Screen, Urine Not Detected (NotDetected); Opiate Screen,Urine Not Detected (NotDetected); Oxycodone Screen, Urine Not Detected (NotDetected); Phencyclidine Screen,Urine Not Detected (NotDetected); Tricyclic Antidepressant,Urine Not Detected (NotDetected); Urn Cannabinoid Scrn Detected (NotDetected)
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
--- NOTE | 2023-12-07 09:00 | P.PN ---
Progress Note - Text Progress Note Date: 12/06/23 NOTE FOR12/06/2023 In-Patient Follow-up Chief Complaint: I feel no different Subjective: The patient noted that his cough is better. He has not noticed any difference other than that. The patient talked to his mother. She told patient that he sounds drowsy. The patient go one dose of Cogentin yesterday. The dose to be increased to Cogentin three times a day. Overall, patient remains the same. Leading questions: The patient denied Depression and Anxiety. Denied SI or HI. Denied symptoms consistent with psychosis Sleep and Appetite: fair. Interim History: Behavioral Changes: PRN meds/isolation/restraints/ change in status: Change in medical condition: No change. Change in medications: No change. Side effects from Medications: None. Objective- MSE: Alert and attentive. Orientation times three. Dressed and Groomed: Appropriately. Pleasant and cooperative. Psychomotor Activity: Normal. Speech: Normal in tone, quality, and quantity. Mood: Anxious. Affect: Flat and constricted. SI or HI: None. Perceptual disturbance: None. Thought Content: No paranoia or other delusional thinking noted. Thought Process: Normal. Cognition: Intact Judgment and Insight: fair. AIMS: Normal. Lab: No new labs. Diagnosis: No change. Plan and recommendation: Continue current Medications. Increase Cogentin to 0.5 mg tid.Monitor MS and side effects of medications and adjust medications accordingly. Provide supportive psychotherapy. The patient provided psychoeducation. The patient provided Substance abuse counseling. Smoke cessation therapy. The patient to continue attending the [facility] activities. CBC with Diff, CMP, TSH, Lipid Profile, HbA1c, EKG ordered. Medication Consent with explanation of risk/benefits and side effects: Explained and obtained.
[2023-12-08] MEDS: NICOTINE GUM (POLACRILEX) 2 MG GUM BUCCAL PRN (18:17)
--- NOTE | 2023-12-08 20:37 | P.PN ---
Progress Note - Text Progress Note Date: 12/08/23 In-Patient Follow-up Chief Complaint: I am doing good Subjective: The patient noted that he is doing good. The patient brought up the subject of going to retirement. He stated that he liked [employer] [facility]. He reported no side effects. He has been attending goups and interacting well with staff and peers. Overall, the patient is making good progress. Leading questions: The patient denied Depression and Anxiety. Denied SI or HI. Denied symptoms consistent with psychosis Sleep and Appetite: Good. Interim History: Behavioral Changes: PRN meds/isolation/restraints/ change in status: None. Change in medical condition: No change. Change in medications: No change. Side effects from Medications: None. Objective- MSE: Alert and attentive. Orientation times three. Dressed and Groomed: Appropriately. Pleasant and cooperative. Psychomotor Activity: Normal. Speech: Normal in tone, quality, and quantity. Mood: Good Affect: Appropriate to the mood. SI or HI: None. Perceptual disturbance: None. Thought Content: No paranoia or other delusional thinking noted. Thought Process: Normal. Cognition: Intact. Judgment and Insight: fair. AIMS: Normal. Labs: no new labs. Diagnosis: No change. Plan and recommendation: Continue current Medications. Monitor MS and side effects of medications and adjust Medications accordingly. Provide supportive psychotherapy. The patient provided psychoeducation. The patient provided Substance abuse counseling. Smoke cessation therapy. Medication Consent with explanation of risk/benefits and side effects: Explained and obtained.
[2023-12-09] MEDS: ACETAMINOPHEN TAB 325 MG TAB PO PRN (12:18)
--- NOTE | 2023-12-09 16:52 | P.PN ---
Progress Note - Text Progress Note Date: 12/09/23 In-Patient Follow-up Chief Complaint: I am anxious Subjective: The patient noted that he wants to go to [facility]. He stated that he is doing fine. Asked about his meeting for detention placement. The patient was told that the meeting is scheduled for Tuesday. He continues to show good improvement. He has been attending [facility]. His interaction with peers and staff is appropriate. Leading questions: The patient admitted Anxiety. Denied SI or HI. Denied symptoms consistent with psychosis Sleep and Appetite: Fine Interim History: Behavioral Changes: PRN meds/isolation/restraints/ change in status: none Change in medical condition: No change. Change in medications: No change. Side effects from Medications: None. Objective- MSE: Alert and attentive. Orientation times three Dressed and Groomed: Appropriately. Pleasant and cooperative. Psychomotor Activity: Normal. Speech: Normal in tone, quality and quantity. Mood: Anxious. Affect: consistent with mood. SI or HI: None. Perceptual disturbance: None. Thought Content: No paranoia or other delusional thinking noted. Thought Process: Normal. Cognition: Intact Judgment and Insight: fair AIMS: Normal Labs: No new labs Diagnosis: No change Plan and Recommendations: Continue current Medications. Monitor MS and side effects of medications and adjust medications accordingly. Provide supportive psychotherapy and psychoeducation. The patient provided Substance abuse counseling. Smoke cessation therapy. The patient to attend [facility]. Medication Consent with explanation of risk/benefits and side effects: Explained and obtained.
[2023-12-09] MEDS: LORazepam 2 MG/ML INJ IM PRN (17:49)
[2023-12-10] MEDS: MELATONIN 5 MG TABLET PO STA (01:50)
--- NOTE | 2023-12-10 12:51 | P.PN ---
Progress Note - Text Progress Note Date: 12/10/23 Interval history: Patient was seen wandering the hallways and was directable and agreeable to s peak with procedure writer. Patient appeared to be fairly focused on speaking with procedure writer earlier however spoke with procedure writer later on in the day and was feeling more tired. He appeared to be somewhat somnolent, denies any current issues at this time states that he is feeling "all right". Denies any problems with his medications. Claims that he is taking, remains focused on getting into the [facility]. Continues to have very poor insight and judgment, denying any depression or anxiety at this time not endorsing paranoia. At this time patient denies any suicidal or homicidal ideations intent or plan. Denies any Auditory or visual hallucinations. Patient denies any side effects from the medications and has been compliant with meds. Mental status exam: General Appearance: Patient appears to be laying in bed stated age is somewhat lethargic, directable, and cooperative. Behavior: No agitated behavior. Patient is calm and directable, attempts to cooperate Speech: Patient's speech is fluent and nonpressured. Jbphh Mood/Affect: Mood is improving mildly, affect is congruent and constricted. Suicidality/Homicidality: Patient denies having any suicidal or homicidal ideation intent or plan. Perceptions: Patient denies any auditory or visual hallucinations. Though content/process: There is no evidence of any delusional thought content and thought process is linear and goal-directed. Jbphh Memory and concentration: AOX3, grossly intact for the purposes of this session Judgment and insight: Poor, improving mildly Assessment/Plan: Continue with current diagnosis. Patient continues to meet criteria for inpatient psychiatric admission for symptom stabilization and safety. Patient will be maintained on current psychotropic medication regimen. Monitor for medication compliance and for any psychotropic medication side effects. Will continue to monitor ongoing response to treatment. Encouraged participation in milieu.
[2023-12-11 07:42] VITALS: RESP 16
--- NOTE | 2023-12-11 11:50 | P.PN ---
Progress Note - Text Progress Note Date: 12/11/23 Interval history: Patient was seen laying in bed this morning and was directable and agreeable to speak with development writer. Patient was fairly somnolent as well today, however he appears to be fairly calm and cooperative with development writer. He asked a question about his medications whether he will be able to still give blood or not. He states that he is doing fairly well with medications, remains fairly focused on discharge on Tuesday. He did not report any other complaints at this time has been going to groups and has been sleeping at nighttime, no problems with appetite today. denying any depression or anxiety at this time not endorsing paranoia. At this time patient denies any suicidal or homicidal ideations intent or plan. Denies any Auditory or visual hallucinations. Patient denies any side effects from the medications and has been compliant with meds. Mental status exam: General Appearance: Patient appears to be laying in bed stated age is somewhat lethargic, directable, and cooperative. Behavior: No agitated behavior. Patient is calm and directable, attempts to cooperate Speech: Patient's speech is fluent and nonpressured. [place], improving mildly Mood/Affect: Mood is improving mildly, affect is congruent and constricted. Suicidality/Homicidality: Patient denies having any suicidal or homicidal ideation intent or plan. Perceptions: Patient denies any auditory or visual hallucinations. Though content/process: There is no evidence of any delusional thought content and thought process is linear and goal-directed. [place], more future oriented today Memory and concentration: AOX3, grossly intact for the purposes of this session Judgment and insight: Poor, improving mildly Assessment/Plan: Continue with current diagnosis. Patient continues to meet criteria for inpatient psychiatric admission for symptom stabilization and safety. Patient will be maintained on current psychotropic medication regimen. Monitor for medication compliance and for any psychotropic medication side effects. Will continue to monitor ongoing response to treatment. Encouraged pa rticipation in milieu.
[2023-12-11] MEDS: chlorproMAZINE 25 MG TAB PO STA (18:59)
[2023-12-11] MEDS: LORazepam 1 MG TAB PO STA (18:59)
[2023-12-12 07:32] VITALS: BP 132/88; PULSE 92; TEMP 97.7
[2023-12-12] MEDS: fluPHENAZine DECANOATE 25 MG/ML 5ML MDV IM SCH (13:18)
--- NOTE | 2023-12-12 23:10 | P.DS ---
Providers Date of admission: 12/04/23 19:42 Expected date of discharge: 12/12/23 Attending physician: Johnathan Spence MD Consults: 12/04/23 19:46 Consult Physician Routine Consulting Provider: Adolfo Armas Consult Reason/Comments: H&P Do you want consulting provider notified?: Yes Primary care physician: Stated None - Discharge Diagnosis(es) (1) Schizoaffective disorder, depressive type Status: Acute Priority: High Hospital Course: Discharge Summary HPI: Identifying Data: Mr. Pickett is 23 years old, single, W. M., who lives in [place], [place], who lives in an [facility]. by himself. Chief Complaint: I have cough History of Psychiatric Illness- The patient noted that he was brought to the hospital for cough. As per patients chart, the patient was acting strange and starring in space. He seems to display these symptoms when getting worse. The patient reports feeling alright. He denied hearing voices, or feeling paranoid. He denied being Depressed or Anxious. The patient noted that he feels tired. He was also concern about his court hearing which is scheduled for tomorrow, as per patient. The patient kept on saying that he wants to go home. He was gently redirected. Past Psychiatric History: The patient was first admitted to the hospital at age 11. The patient does not know the details. He reports several admissions since then. He was unable to give and meaningful history of his psychiatric illness. Two attempts were made to contact her mother, with patients consent but failed. During his last admission to this hospital, he was hearing voices, not making any sense and acting agitated. Past Medication History: The patient does not remember his medications. As per chart. he was discharged on Poloxin D 50 mg twice a month. Last dose given 11/30/2023 Leading questions: The patient denied /admitted to Depression and Anxiety. Denied SI or HI. Denied symptoms consistent with psychosis Hospital Course: The patient was reinstated on his oral Prolixin 10 mg po qhs. Later Depakote was added and gradually titrated to the dose of 250 mg tid. He was also given Cogentin 0.5 mg tid for mild akathisia and EPS. He was also involved in [facility] milieu and individual psychotherapy. The patient slowly improved. He was initially seclusive but gradually started attending all the groups and began interactive with staff. He became more verbal during the individual therapy. He was compliant with treatment recommendations. He reported no side effects from medications. He had some concern about Depakote because he was not able to donate blood on psychotropic medications. he believed it was due to Depakote. He was gently redirected. The patient never refused taking his medications. Overall, the patient stabilized to be discharged as an out-pt for next level of care. He was finally discharge to snf as planned today in a stable condition with appointment at [facility] by the social work. He has no guns or weapons in his possession. MSE: Alert and attentive. Orientation times two. Dressed and Groomed: Adequately. Pleasant and cooperative. Psychomotor Activity: Moderately reduced. Mild akathisia noted. He appears mildly stiffness. Speech: Normal in tone, quality and underproductive. Mood: Good Affect Flat SI or HI: None. Perceptual disturbance: None. Thought Content: No overt paranoia or delusional thinking noted. Thought Process: Normal. Cognition: Intact Judgment and Insight: Poor Diagnosis: Schizoaffective Disorder, Depressed Type Marijuana Abuse Nicotine dependence Plan: The patient to be discharged today. The patient has attained good improvement since admission. He is stable to be followed as an outpatient. The patient is not suicidal or Homicidal. He does not pose any harm to self or others. The patient remains at a greater risk of self-harm or harm to others than general population on a chronic basis due to psychiatric illness and substance abuse. The patient will continue taking following medication post discharge. The importance of medication compliance and maintaining regular appointments at psychiatric out-pt and PCP clinic was explained and encouraged. The patient was also advised to seek Substance abuse counseling and attend NA meetings. The understood and agreed with the recommendations. case worker to arrange for and conduct family meeting to ensure safety upon discharge and answer any questions. The social science teacher to arrange for patients follow-up appointments at [facility] for psychiatric care along with follow-up with PCP. The patient provided psychoeducation. Advised to call 911 or go to nearest ED or call this hospital in case of acute worsening of symptomatology, severe side effects or having suicidal, homicidal thoughts and feeling unsafe at home. Patient Condition at Discharge: Stable Plan - Discharge Summary Discharge Rx Participant: No New Discharge Prescriptions: New Divalproex [Depakote] 250 mg PO TID 30 Days #90 tab fluPHENAZine [Prolixin 5MG] 5 mg PO HS 5 Days #5 tablet Benztropine Mesylate [Cogentin] 0.5 mg PO TID 30 Days #90 tab fluPHENAZine [Prolixin] 10 mg PO HS 5 Days #5 tab Changed fluPHENAZine decanoate [Prolixin Decanoate] 50 mg IM Q14D #1 ml Discharge Medication List Benztropine Mesylate [Cogentin] 0.5 mg PO TID 30 Days #90 tab 12/12/23 [Rx] Divalproex [Depakote] 250 mg PO TID 30 Days #90 tab 12/12/23 [Rx] fluPHENAZine [Prolixin 5MG] 5 mg PO HS 5 Days #5 tablet 12/12/23 [Rx] fluPHENAZine [Prolixin] 10 mg PO HS 5 Days #5 tab 12/12/23 [Rx] fluPHENAZine decanoate [Prolixin Decanoate] 50 mg IM Q14D #1 ml 12/12/23 [Rx] Follow up Appointment(s)/Referral(s): [facility] [Outside] - 12/12/23 1:00 pm (snf meeting 12/11 @ 13:00 Med review @ [facility] 12/14 @ 13:00 ) [facility] [NON-STAFF] - 1 Week Patient Instructions/Handouts: Schizoaffective Disorder (DC), Psychotic Disorder (DC) Activity/Diet/Wound Care/Special Instructions: Avoid the use of street drugs and alcohol. Take all medications as prescribed. When you are in need of refills on your medications, please contact your medical provider and/or outpatient psychiatrist/provider to have this done. Please go to your scheduled outpatient appointment for aftercare treatment. If symptoms return or become worse, call the crisis line at and/or go to the nearest emergency room for evaluation. National Suicide Hotline 069
[2023-12-14] MEDS ORDERED: fluPHENAZine DECANOATE 25 MG/ML 5ML MDV IM SCH (12:00)
== END 2023-12-12 13:22 | disposition home or self-care (01) | DRG 750 ==
LOC: EC 13:34 → 3MHU 19:42
PROVIDERS: ADMIT Psychiatry & Neurology Psychiatry; ATTEND Psychiatry & Neurology Psychiatry
DX: F25.1 Schizoaffective disorder, depressive type (principal); F31.9 Bipolar disorder, unspecified; F12.10 Cannabis abuse, uncomplicated; Z20.822 Contact with and (suspected) exposure to COVID-19; F17.200 Nicotine dependence, unspecified, uncomplicated; F43.10 Post-traumatic stress disorder, unspecified; F43.21 Adjustment disorder with depressed mood; F60.3 Borderline personality disorder; Z55.5 Less than a high school diploma; Z76.5 Malingerer [conscious simulation]; Z79.899 Other long term (current) drug therapy; Z71.6 Tobacco abuse counseling; Z71.51 Drug abuse counseling and surveillance of drug abuser
CPT/HCPCS: 71046; 80053; 80306; 81003; 82075; 83036; 84443; 85025; 87636; 87651; 99285

== ENCOUNTER 2023-12-19 18:48 | Emergency (ER) | payer OTHER ==
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
[2023-12-19 19:18] VITALS: BP 133/79; PULSE 89; RESP 16; TEMP 98.5
[2023-12-19 20:32] LABS: Basophils % (A) 0 %; Eosinophils # (A) 0.3 k/uL (0-0.7); Eosinophils % (A) 3 %; HCT 43.3 % (39.0-53.0); HGB 14.5 gm/dL (13.0-17.5); Lymphocytes # (A) 2.4 k/uL (1.0-4.8); Lymphocytes % (A) 21 %; MCH 29.9 pg (25.0-35.0); MCHC 33.6 g/dL (31.0-37.0); MCV 89.1 fL (80.0-100.0); Mean Platelet Volume 7.3; Monocytes # (A) 0.9 k/uL (0-1.0); Monocytes % (A) 8 %; Neutrophils # (A) 7.5 k/uL (1.3-7.7); Neutrophils % (A) 66 %; Platelet Count 192 k/uL (150-450); RBC 4.86 m/uL (4.30-5.90); RDW 12.3 % (11.5-15.5); WBC 11.4 k/uL (3.8-10.6)
[2023-12-19 20:46] LABS: ALT 10 U/L (4-49); AST 20 U/L (17-59); African American GFR (CKD) >90 (>60 ml/min/1.73 sqM); Albumin 4.5 g/dL (3.5-5.0); Alkaline Phosphatase 74 U/L (38-126); Anion Gap 8 mmol/L; Blood Urea Nitrogen 13 mg/dL (9-20); Calcium 9.5 mg/dL (8.4-10.2); Carbon Dioxide 25 mmol/L (22-30); Chloride 105 mmol/L (98-107); Glucose 93 mg/dL (74-99); Non-African American GFR(CKD) >90 (>60 ml/min/1.73 sqM); Potassium 3.9 mmol/L (3.5-5.1); Sodium 138 mmol/L (137-145); Total Bilirubin 0.5 mg/dL (0.2-1.3); Total Protein 7.1 g/dL (6.3-8.2)
[2023-12-20 00:27] LABS: Appearance,Urine Clear (Clear); Bacteria,Urine Rare /hpf; Bilirubin,Urine Negative (Negative); Blood,Urine Trace (Negative); Color,Urine Yellow; Glucose,Urine (UA) Negative (Negative); Ketones,Urine 1+ (Negative); Leukocyte Esterase,Urine Small (Negative); Mucus,Urine Occasional /hpf; Nitrite,Urine Negative (Negative); Protein,Urine Negative (Negative); RBC,Urine 3 /hpf (0-5); Specific Gravity,Urine 1.023 (1.001-1.035); Squamous Epithelial Cell,Urine <1 /hpf (0-4); Urobilinogen,Urine <2.0 mg/dL (<2.0); WBC,Urine 10 /hpf (0-5)
[2023-12-20 00:34] LABS: Amphetamine Screen,Urine Not Detected (NotDetected); Barbiturate Screen,Urine Not Detected (NotDetected); Benzodiazepines Screen,Urine Not Detected (NotDetected); Cocaine Screen,Urine Not Detected (NotDetected); Methadone Screen, Urine Not Detected (NotDetected); Opiate Screen,Urine Not Detected (NotDetected); Oxycodone Screen, Urine Not Detected (NotDetected); Phencyclidine Screen,Urine Not Detected (NotDetected); Tricyclic Antidepressant,Urine Not Detected (NotDetected); Urn Cannabinoid Scrn Detected (NotDetected)
== END 2023-12-20 01:15 | disposition home or self-care (01) ==
LOC: EC 18:48
DX: R25.1 Tremor, unspecified (principal); F17.290 Nicotine dependence, other tobacco product, uncomplicated; F12.90 Cannabis use, unspecified, uncomplicated; Z88.8 Allergy status to other drugs, medicaments and biological substances
CPT/HCPCS: 36415; 80053; 80164; 80306; 81001; 82075; 85025; 93005; 99285

== ENCOUNTER 2025-02-20 11:39 | Inpatient (IN) | payer OTHER, MEDICAID ==
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
[2025-02-20 13:37] LABS: Barbiturate Screen,Urine Not Detected (NotDetected); Benzodiazepines Screen,Urine Detected (NotDetected); Opiate Screen,Urine Not Detected (NotDetected); Oxycodone Screen, Urine Not Detected (NotDetected); Phencyclidine Screen,Urine Not Detected (NotDetected); Tricyclic Antidepressant,Urine Not Detected (NotDetected); Urn Cannabinoid Scrn Detected (NotDetected)
[2025-02-20] MEDS: LORazepam 1 MG TAB PO PRN (16:17)
[2025-02-20] MEDS: HALOPERIDOL LACTATE 5 MG/ML 1 ML VIAL IM PRN (19:32)
[2025-02-20] MEDS: diphenhydrAMINE 50 MG/ML 1 ML VIAL IM STA (19:39)
[2025-02-21 01:17] LABS: Bilirubin,Urine Negative (Negative); Blood,Urine Negative (Negative); Color,Urine Yellow; Glucose,Urine (UA) Negative (Negative); Ketones,Urine Negative (Negative); Leukocyte Esterase,Urine Negative (Negative); Nitrite,Urine Negative (Negative); PH, Urine 6.5 (5.0-8.0); Protein,Urine Negative (Negative); Specific Gravity,Urine 1.022 (1.001-1.035); Urobilinogen,Urine 2.0 mg/dL (<2.0)
[2025-02-21] MEDS ORDERED: NICOTINE 14MG/24HR PATCH TRANSDERM SCH ×2 (09:00→17:41)
--- NOTE | 2025-02-21 12:48 | P.HP ---
Psychiatric H&P - . H&P Date: 02/21/25 History & Physical: Allergies Allergy/AdvReac Type Severity Reaction Status Date / Time mirtazapine [From Remeron] AdvReac over Verified 02/20/25 13:37 heated/sweating Vital Signs Temp 98.4 F 02/20/25 16:38 Pulse 71 02/20/25 16:38 Resp 16 02/20/25 16:38 BP 158/93 02/20/25 16:38 Pulse Ox 100 02/20/25 16:38 FiO2 Intake & Output 02/20/25 02/21/25 02/21/25 18:59 06:59 18:59 Weight 65.998 kg Laboratory Last Values Urine Color Yellow 02/20/25 12:33 Urine Appearance Clear (Clear) 02/20/25 12:33 Urine pH 6.5 (5.0-8.0) 02/20/25 12:33 Ur Specific [place] 1.022 (1.001-1.035) 02/20/25 12:33 Urine Protein Negative (Negative) 02/20/25 12:33 Urine Glucose (UA) Negative (Negative) 02/20/25 12:33 Urine Ketones Negative (Negative) 02/20/25 12:33 Urine Blood Negative (Negative) 02/20/25 12:33 Urine Nitrite Negative (Negative) 02/20/25 12:33 Urine Bilirubin Negative (Negative) 02/20/25 12:33 Urine Urobilinogen 2.0 mg/dL (<2.0) 02/20/25 12:33 Ur Leukocyte Esterase Negative (Negative) 02/20/25 12:33 Urine Opiates Screen Not Detected (NotDetected) 02/20/25 12:23 Ur Oxycodone Screen Not Detected (NotDetected) 02/20/25 12:23 Urine Methadone Screen Not Detected (NotDetected) 02/20/25 12:23 Ur Barbiturates Screen Not Detected (NotDetected) 02/20/25 12:23 U Tricyclic Antidepress Not Detected (NotDetected) 02/20/25 12:23 Ur Phencyclidine Scrn Not Detected (NotDetected) 02/20/25 12:23 Ur Amphetamines Screen Not Detected (NotDetected) 02/20/25 12:23 U Methamphetamines Scrn Not Detected (NotDetected) 02/20/25 12:23 U Benzodiazepines Scrn Detected (NotDetected) H 02/20/25 12:23 Urine Cocaine Screen Not Detected (NotDetected) 02/20/25 12:23 U Marijuana (THC) Screen Detected (NotDetected) H 02/20/25 12:23 SARS-CoV-2 (PCR) Not Detected (Not Detectd) 02/20/25 13:33 02/21/25 11:53 IDENTIFYING DATA: Patient is a 24-year-old male who currently lives alone in a hotel, he has a guardian HPI: Patient presented to the hospital was evaluated by EPS and according to note "Clinician met with Cali in ER 13 to eval. Cl lying in bed A/O x3 brought in by [facility] on PET. EPS contacted by Mobile Crisis prior to patients arrival. Chata from [facility] reports that in patient is recommended due to patient being kicked out of the [facility] where they were reportedly staying through [facility] placement. Pt reported to be posturing, agressive, naked paranoid, responding to hallucinations, and presenting with a " stare." [facility] PET states " Cali was rambling on about money and someone outside his roomvaping, [facility] attempted to speak w Cali with no success. Cali stated he wanted to kill himself. Cali also stated many things to [facility] that did not make sense.Cali continually tried to walk away. Cali unable to care for himself."Clinician observed Cali's arrival and behavior while being evaluated. PT repeatedly gave vague answers and refused to answer questions. Pt reports taking medications but [facility] said there were no medications to be found. When clinician met with Cali he stated tearfully " I am in a dark place right now, I am scared, I can't talk about this, its too personal, I am scared about what life is, I am going to hell. I can't tell you about it, I need to talk to somebody else. You need to leave this room right now.The next step ladstacey Demetria did this to me. You all know this already. " Patient was seen today at the bedside, he appeared to be disheveled in appearance, was responding to internal stimuli. He was fairly uncooperative with the interview only answered some questions. Was at times illogical/disorganized. He appeared to be indifferent about his medications and would not clarify if he is actually taking them. He does not believe he needs to be in the hospital or need treatment. Guarded about depression and anxiety. Very poor insight and poor judgment and poor impulse control. At this time he is denying any auditory hallucinations, denying any visual hallucinations. Denies any suicidal thoughts however no intent or plan. Denying any homicidal ideations. Patient claims that he is not using any recreational drugs. He is positive for marijuana and benzodiazepines. PAST PSYCHIATRIC HISTORY: Patient states that he has history of schizophrenia and polysubstance abuse. Patient claims that he is currently on BuSpar, Depakote, Risperdal. He has been on several different medications in the past including long-acting injections. He has had several different orders for mental health treatment in the past as well, currently . Patient was last psychiatrically hospitalized to the mental health unit in December 2023. Patient currently follows up at [facility] with the nurse practitioner last seen in November 2024. Patient denies any history of suicide attempts in the past. Past Medical History: As per ER note ALLERGIES: as per EMR CHEMICAL DEPENDENCY HISTORY: as per HPI FAMILY PSYCHIATRIC/SUBSTANCE USE HISTORY: Claims that his sister has some form of mental illness. SOCIAL HISTORY: Patient was born and raised in [facility]. He complained claims that she completed high school, he is currently unemployed, denies any legal history. He was at a hotel living there, has a guardian MENTAL STATUS EXAM: General Appearance: Patient appears to be thin, stated age is alert, responding to internal stimuli, irritable at times. Unpredictable. Patient appears to have poor hygiene and grooming. Behavior: Patient is seated without any agitated behavior. Irritable. And unpredictable responding to internal stimuli Speech: Patient's speech is fluent and nonpressured. Rambling. Mumbling. Disorganized Mood/Affect: Patient reports their mood is "okay", affect is congruent and constricted. Suicidality/Homicidality: Patient denies having any homicidal ideation intent or plan. Denies any suicidal ideations, no intent or plan. Perceptions: Patient denies any visual hallucinations and denies any auditory hallucinations Though content/process: Bizarre content, illogical. Loose associations. Poverty of content Memory and concentration: AOX3, grossly intact for the purposes of this session. Cannot spell "WORLD" backwards Judgment and insight: poor/impulsive STRENGTHS/WEAKNESSES: strength is that patient is resilient. Weakness is that patient has poor judgment and is impulsive INTELLECT: average IMPRESSIONS: Schizoaffective disorder, bipolar type Cannabis use disorder Nicotine dependence PLAN: -Patient is admitted under involuntary status to MHU for stabilization of psychiatric symptoms and safety. Patient has not signed adult voluntary form and medication consent and is placed in patient's chart. A second certification was completed and along with petition will be filed for court. -Medications : Risperdal p.o. 2 mg bid at bedtime for psychosis/mood stabilization. Plan will be to transition patient on the long-acting injection. Depakote 1500 mg nightly for mood stabilization/agitation. BuSpar 15 mg twice daily for anxiety, Cymbalta 60 mg daily for mood/anxiety. Clonidine 0.1 mg nightly for sleep/impulsivity -Ativan and Haldol PRN for agitation/aggression -Patient was informed of the risks, benefits and side effects of the medication. Patient was not agreeable to signing for the medication consent, declined any medication information at this time. -Internal Medicine consult to perform medical evaluation and physical. -NRT - nicotine patch -SW on board for discharge planning. Encourage patient to participate in groups to work on coping skills. Will await deferral and court date.
[2025-02-21] MEDS: risperiDONE ODT 2 MG TAB PO SCH (14:02)
[2025-02-21] MEDS: DIVALPROEX 500 MG TABLET.DR PO SCH (19:53)
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
[2025-02-22] MEDS: DULoxetine HCL 60 MG CAPSULE.DR PO SCH (07:51)
[2025-02-22] MEDS: NICOTINE 14MG/24HR PATCH TRANSDERM SCH (07:52)
[2025-02-22] MEDS: MAGNESIUM HYDROXIDE 2,400 MG/30 ML CUP PO PRN (10:03)
[2025-02-22] MEDS: chlorproMAZINE 25 MG TAB PO STA (11:07)
[2025-02-22] MEDS: diphenhydrAMINE 25 MG CAP PO STA (11:07)
--- NOTE | 2025-02-22 11:30 | P.PN ---
Progress Note - Text Progress Note Date: 02/22/25 Interval history: Patient was seen today for psychiatric follow-up. According to nursing report patient was up near the window for medications and was kicking and screaming and was nonsensical delusional and disorganized and appeared to be very agitated. Has been receiving multiple Haldol and Ativan as needed however it has not been helping. Patient received Thorazine shortly after as a one-time order as needed. Afterwards patient was sedated and went to his room sleeping. Pluck Separator attempted to speak with patient and he woke up briefly, he acknowledged physician underwriter and that went back to sleep. He refused to answer any questions at this time and did not want to speak to physician underwriter at this time. MENTAL STATUS EXAM: General Appearance: Patient appears to be thin, stated age is alert, responding to internal stimuli, sedated. Unpredictable. Patient appears to have poor hygiene and grooming. Behavior: Patient is seated without any agitated behavior. Fairly sedated, responding to internal stimuli Speech: Patient's speech is fluent and nonpressured. Mumbling. Disorganized soft tone Mood/Affect: Patient reports their mood is "fine", affect is congruent and constricted. Suicidality/Homicidality: Patient denies having any homicidal ideation intent or plan. Denies any suicidal ideations, no intent or plan. Perceptions: Patient denies any visual hallucinations and denies any auditory hallucinations Though content/process: Bizarre content, illogical. Poverty of content Memory and concentration: Unable to assess Judgment and insight: poor/impulsive IMPRESSIONS: Schizoaffective disorder, bipolar type Cannabis use disorder Nicotine dependence PLAN: -Patient is admitted under involuntary status to MHU for stabilization of psychiatric symptoms and safety. Patient has not signed adult voluntary form and medication consent and is placed in patient's chart -Medications : Increase Risperdal p.o. 3 mg bid at bedtime for psychosis/mood stabilization. Plan will be to transition patient on the long-acting injection. Increase Depakote 1500 mg nightly + 500 mg daily and for mood stabilization/agitation. increase BuSpar 20 mg twice daily for anxiety, Cymbalta 60 mg daily for mood/anxiety. Clonidine 0.1 mg nightly for sleep/impulsivity -Ativan and Haldol PRN for agitation/aggression -NRT - nicotine patch -SW on board for discharge planning. Encourage patient to participate in groups to work on coping skills. will have deferral with defense attorney today and full hearing on tuesday
[2025-02-22] MEDS: chlorproMAZINE 25 MG TAB PO PRN (15:23)
[2025-02-22 17:22] LABS: Basophils # (A) 0.02 10*3/uL (0.00-0.10); Basophils % (A) 0.3 %; Eosinophils # (A) 0.14 10*3/uL (0.04-0.35); Eosinophils % (A) 2.1 %; HCT 47.4 % (39.6-50.0); HGB 17.0 g/dL (13.0-17.0); Lymphocytes # (A) 1.91 10*3/uL (0.90-5.00); Lymphocytes % (A) 29.2 %; MCH 31.3 pg (27.0-32.0); MCHC 35.9 g/dL (32.0-37.0); MCV 87.1 fL (80.0-97.0); Monocytes # (A) 0.61 10*3/uL (0.20-1.00); Monocytes % (A) 9.3 %; Neutrophils # (A) 3.84 10*3/uL (1.80-7.70); Neutrophils % (A) 58.8 %; Platelet Count 174 10*3/uL (140-440); RBC 5.44 10*6/uL (4.40-5.60); RDW 11.9 % (11.5-14.5); WBC 6.54 10*3/uL (4.50-10.00)
[2025-02-22 17:34] LABS: ALT 18 U/L (4-49); AST 71 U/L (17-59); African American GFR (CKD) >90 (>60 ml/min/1.73 sqM); Albumin 5.0 g/dL (3.5-5.0); Alkaline Phosphatase 70 U/L (38-126); Anion Gap 11 mmol/L; Blood Urea Nitrogen 15 mg/dL (9-20); Calcium 9.4 mg/dL (8.4-10.2); Carbon Dioxide 26 mmol/L (22-30); Chloride 103 mmol/L (98-107); Glucose 86 mg/dL (74-99); Non-African American GFR(CKD) >90 (>60 ml/min/1.73 sqM); Potassium 3.7 mmol/L (3.5-5.1); Sodium 140 mmol/L (137-145); Total Protein 7.4 g/dL (6.3-8.2)
[2025-02-22] MEDS: risperiDONE ODT 1 MG TAB PO SCH (22:41)
[2025-02-23 02:06] LABS: Cholesterol 99.00 mg/dL (0.00-200.00); HDL Cholesterol 38.20 mg/dL (40.00-60.00); LDL Cholesterol,Calculated 50.3 mg/dL (0.0-131.0); Triglycerides 52.50 mg/dL (0.00-149.00); VLDL Calculation 10.50 mg/dL (5.00-40.00)
[2025-02-23] MEDS: DIVALPROEX 500 MG TABLET.DR PO SCH (09:56)
[2025-02-23] MEDS: chlorproMAZINE 25 MG/ML 2 ML AMP IM PRN (11:13)
--- NOTE | 2025-02-23 16:16 | P.PN ---
Progress Note - Text Progress Note Date: 02/23/25 Dictation was produced using [employer] dictation software. Please excuse any grammatical, word or spelling errors. Interval history: Patient was seen in the hallway and was directable and agreeable to speak with the clinical writer for psychiatric follow-up. Per report the patient was agitated early this morning, was kicking the petersen and screaming at times, the patient was seen talking the phone with someone and he was angry, received as needed medication and went to his room, was calm afterward. The patient states that he is okay now, reported that he is a bit more aware of his surrounding, reported that his mood today is " a little depressed," states that he was agitated earlier after having a phone call with his mother, states that he would rather not talk about it since a lot going on. Patient was encouraged to share his feelings and emotions so he can start feeling better. He reported depression and anxiety to be at the moderate side, denied any current suicidal, self-harm or homicidal thoughts or behavior, when asked about AVH he states that " I hear people not voices." And he denied any visual hallucination. States that " God wants me to be here." Reported that his sleep was okay last night, it is reported that he slept 5 hours last night, the patient was sleeping most of the day today. Reported that he has been eating his meals. States that he has been compliant with his medication, denied any current side effects, denied any muscle stiffness, rigidity, abnormal movement, or drooling. The patient has a limited insight into his current mental illness, he has bizarre behavior and disorganized thoughts, can be easily frustrated and can be agitated at time, he was responding to internal stimuli at time, asking for cigarette. MENTAL STATUS EXAM: General Appearance: Patient appears to be thin, stated age, is alert, responding to internal stimuli, sedated. Unpredictable. Patient appears to have poor hygiene and grooming. Behavior: Patient is seated without any agitated behavior. Fairly sedated, responding to internal stimuli at times Speech: Patient's speech is fluent and nonpressured. Disorganized soft tone, illogical at times Mood/Affect: Patient reports their mood is "little depressed", affect is congruent and constricted. Suicidality/Homicidality: Patient denies having any homicidal ideation intent or plan. Denies any suicidal ideations, no intent or plan. Perceptions: Patient denies any visual hallucinations and denies any auditory hallucinations however reported " I hear people" Though content/process: Bizarre content, illogical, nonsensical with disorganized thoughts and behavior. Poverty of content Memory and concentration: He was awake, oriented x 3, has no insight into the situation. Judgment and insight: poor/impulsive IMPRESSIONS: Schizoaffective disorder, bipolar type Cannabis use disorder Nicotine dependence Assessment/Plan: Continue with current diagnosis. Patient continues to meet criteria for inpatient psychiatric admission for symptom stabilization and safety. Patient will be maintained on current psychotropic medication regimen which include Risperdal 3 mg p.o. twice daily, was increased on Tuesday, plan to transition to SLOAN prior to discharge, Depakote 1500 mg p.o. at bedtime and 500 mg p.o. daily, BuSpar 20 mg p.o. twice daily, Cymbalta 60 mg p.o. daily, and clonidine 0.1 mg p.o. at bedtime, psychoeducation was provided, risk, benefit and side effect discussed, patient denied any current side effects, denied any muscle stiffness, rigidity, abnormal movement, or drooling. Monitor for medication compliance and for any psychotropic medication side effects. Will continue to monitor ongoing response to treatment. Encouraged participation in milieu.
--- NOTE | 2025-02-24 12:31 | P.PN ---
Progress Note - Text Progress Note Date: 02/24/25 Dictation was produced using [employer] dictation software. Please excuse any grammatical, word or spelling errors. Interval history: Patient was seen in his room and was directable and agreeable to speak with the instructional writer for psychiatric follow-up. The patient states that he is feeling okay today, patient has a slow thought process, takes time to answer questions, was looking around and to the ceiling however was redirectable and better than previous day. Reported depression and anxiety to be at the moderate side, he denied any current suicidal, self-harm or homicidal thoughts or behavior, reported that he still here voices at time however did not want to elaborate, denied any visual hallucination. His thought process is illogical and nonsensical, he was calm, pleasant during the interview, trying to answer questions. Per staff report he was agitated this morning after having a phone call with his mother, he was agitated with a male peer that was staring at him however was easy to redirect him, as needed medication was given. He slept well last night, it is reported 7 hours of sleep. Admitted to good appetite. He has been compliant with his medication, denied any side effects, denied any muscle stiffness, rigidity, abnormal movement, or drooling. He continued to have a l imited insight into his current mental illness and demonstrates bizarre behavior at times however better than previous day. MENTAL STATUS EXAM: General Appearance: Patient appears to be thin, stated age, is alert, responding to internal stimuli, sedated. Unpredictable. Patient appears to have poor hygiene and grooming. Behavior: Patient is seated without any agitated behavior. Fairly sedated, responding to internal stimuli at times Speech: Patient's speech is fluent and nonpressured. Disorganized soft tone, illogical at times Mood/Affect: Patient reports their mood is "okay", affect is congruent and constricted. Suicidality/Homicidality: Patient denies having any homicidal ideation intent or plan. Denies any suicidal ideations, no intent or plan. Perceptions: Patient denies any visual hallucinations and denies any auditory hallucinations however reported " I hear people" Though content/process: Bizarre content, illogical, nonsensical with disorganized thoughts and behavior. Poverty of content Memory and concentration: He was awake, oriented x 3, has no insight into the situation. Judgment and insight: poor/impulsive IMPRESSIONS: Schizoaffective disorder, bipolar type Cannabis use disorder Nicotine dependence Assessment/Plan: Continue with current diagnosis. Patient continues to meet criteria for inpatient psychiatric admission for symptom stabilization and safety. Patient will be maintained on current psychotropic medication regimen which include Risperdal 3 mg p.o. twice daily, was increased on Tuesday, plan to transition to SLOAN prior to discharge, Depakote 1500 mg p.o. at bedtime and 500 mg p.o. daily, BuSpar 20 mg p.o. twice daily, Cymbalta 60 mg p.o. daily, and clonidine 0.1 mg p.o. at bedtime, psychoeducation was provided, risk, benefit and side effect discussed, patient denied any current side effects, denied any muscle stiffness, rigidity, abnormal movement, or drooling, plan to get the Depakote level Tuesday morning. Monitor for medication compliance and for any psychotropic medication side effects. Will continue to monitor ongoing response to treatment. Encouraged participation in milieu.
[2025-02-24] MEDS: NICOTINE GUM (POLACRILEX) 2 MG GUM BUCCAL PRN (13:34)
[2025-02-25] MEDS: ZIPRASIDONE 20 MG VIAL IM ONE (11:39)
--- NOTE | 2025-02-25 11:40 | P.PN ---
Progress Note - Text Progress Note Date: 02/25/25 Interval history: Patient was seen today for psychiatric follow-up. Patient was wandering the h allways after having a shower. He was agreeable to speak to securities underwriter and he is room today. He received as needed Thorazine earlier today along with Ativan. He did appear to be mildly sedated however was mumbling at times, mildly disorganized. He minimizes his need for medications and asked several times when he is being discharged. He has very poor insight and poor judgment. He is denying any depression or anxiety. Continues to be very unpredictable and agitated. We spoke about the long-acting injection and patient immediately began being defensive aggressive towards securities underwriter and states that it makes him "more angry". He is denying any auditory or visual hallucinations denies any suicidal or homicidal ideations intent or plan. After securities underwriter completed the interview with the patient, patient began yelling in the hallways disorganized aggressive slamming doors and punching things and security was called up once again and patient was given Geodon and Ativan as needed. MENTAL STATUS EXAM: General Appearance: Patient appears to be thin, stated age is alert, responding to internal stimuli, Unpredictable. Patient appears to have improving mildly hygiene and grooming. Behavior: Patient is seated without any agitated behavior. impulsive, agitated at times Speech: Patient's speech is fluent and nonpressured. Mumbling, improving mildly. Disorganized soft tone Mood/Affect: Patient reports their mood is "same", affect is congruent and constricted. Suicidality/Homicidality: Patient denies having any homicidal ideation intent or plan. Denies any suicidal ideations, no intent or plan. Perceptions: Patient denies any visual hallucinations and denies any auditory hallucinations Though content/process: Bizarre content at times, illogical. Poverty of content. minimizing his need for treatment. Memory and concentration: alert and oriented x 3 Judgment and insight: poor/impulsive IMPRESSIONS: Schizoaffective disorder, bipolar type Cannabis use disorder Nicotine dependence PLAN: -Patient is admitted under involuntary status to MHU for stabilization of psychiatric symptoms and safety. Patient has not signed adult voluntary form and medication consent and is placed in patient's chart -Medications : Risperdal p.o. 3 mg bid at bedtime for psychosis/mood stabilization. Plan will be to transition patient on the long-acting injection due to patients severe sx and non compliance of medications. Depakote 1500 mg nightly + 500 mg daily and for mood stabilization/agitation. BuSpar 20 mg twice daily for anxiety, Cymbalta 60 mg daily for mood/anxiety. Clonidine 0.1 mg n ightly for sleep/impulsivity. added lithobid 450 mg hs for mood stabilization/aggression -Ativan and Haldol PRN for agitation/aggression -NRT - nicotine patch -SW on board for discharge planning. Encourage patient to participate in groups to work on coping skills. will have deferral with employee benefits attorney today and full hearing on tuesday. patient will need to be transitioned onto SLOAN
[2025-02-25] MEDS: LITHIUM CARBONATE ER 450 MG TABLET.ER PO SCH (21:02)
[2025-02-26] MEDS: PALIPERIDONE IM 234 MG/1.5 ML SYG IM ONE (10:28)
--- NOTE | 2025-02-26 11:33 | P.PN ---
Progress Note - Text Progress Note Date: 02/26/25 Interval history: Patient was seen today for psychiatric follow-up. Patient was wandering the h allways and was fairly confrontational with health underwriter today wanted to speak to him. We were able to speak in his room. He continues to be disorganized in his thought process and thought content. He believes that health underwriter was in a hurry to "go away" and not speak to him. He continues to ramble at times nonsensically. He believes that the medications have been making him feel "calmer and warm inside". He is denying any depression or anxiety at this time. He continues to receive as needed medications for agitation and aggression. Continues to be fairly unpredictable and very poor insight and poor judgment. He was fairly focused on discharge today and does not believe he needs to be in the hospital. He is denying any auditory or visual hallucinations denies any suicidal or homicidal ideations intent or plan. MENTAL STATUS EXAM: General Appearance: Patient appears to be thin, stated age is alert, responding to internal stimuli, Unpredictable. Patient appears to have improving mildly hygiene and grooming. Behavior: Patient is seated without any agitated behavior. impulsive, agitated at times, improving mildly. Confrontational Speech: Patient's speech is fluent and nonpressured. Mumbling, improving mildly. Disorganized soft tone Mood/Affect: Patient reports their mood is "better", affect is congruent and constricted. Suicidality/Homicidality: Patient denies having any homicidal ideation intent or plan. Denies any suicidal ideations, no intent or plan. Perceptions: Patient denies any visual hallucinations and denies any auditory hallucinations Though content/process: Bizarre content at times, illogical. Poverty of content. minimizing his need for treatment. Improving mildly Memory and concentration: alert and oriented x 3 Judgment and insight: Chronically limited/poor/impulsive IMPRESSIONS: Schizoaffective disorder, bipolar type Cannabis use disorder Nicotine dependence PLAN: -Patient is admitted under involuntary status to MHU for stabilization of psyc hiatric symptoms and safety. Patient has not signed adult voluntary form and medication consent and is placed in patient's chart -Medications : Risperdal p.o. 3 mg bid at bedtime for psychosis/mood st abilization. Plan will be to transition patient on the long-acting injection due to patients severe sx and non compliance of medications. Depakote 1500 mg nightly + 500 mg daily and for mood stabilization/agitation. Increase BuSpar 30 mg twice daily for anxiety, Cymbalta 60 mg daily for mood/anxiety. Increase clonidine 0.1 mg twice daily for sleep/impulsivity. lithobid 450 mg hs for mood stabilization/aggression -Check Depakote level tomorrow morning -Check EKG -Ativan and Haldol PRN for agitation/aggression -NRT - nicotine patch -SW on board for discharge planning. Encourage patient to participate in groups to work on coping skills. Patient ended up signing deferral agreeing to treatment, due to patient's severe symptoms history of aggression and noncompliance part of the treatment plan will be to transition patient on to long-acting injection. We will offer long-acting injection today if patient refuses this then we will go ahead with demand for hearing.
--- NOTE | 2025-02-27 11:04 | P.PN ---
Progress Note - Text Progress Note Date: 02/27/25 Interval history: Patient was seen today for psychiatric follow-up. Patient was wandering the h allways. Patient was agreeable to speak in his room today. He appeared to be a bit sedated today, was initially fairly calm and cooperative however began being more impulsive and intrusive with movie writer. He firmly believed that he was being discharged today and was arguing with movie writer about it. He claims that "I am homeless but let me be homeless somewhere else". [employer] attempted to explain to him that his guardians have not got him a place to go yet. He denies any depression or anxiety. Claims that he was upset at another patient on the unit earlier. Has not been going to many groups, hygiene and grooming improving. Continues to be fairly unpredictable and very poor insight and poor judgment. He was fairly focused on discharge today and does not believe he needs to be in the hospital. Denies any issues with sleep or appetite. He is denying any auditory or visual hallucinations denies any suicidal or homicidal ideations intent or plan. MENTAL STATUS EXAM: General Appearance: Patient appears to be thin, stated age is alert, responding to internal stimuli, Unpredictable. Patient appears to have improving mildly hygiene and grooming. Behavior: Patient is seated without any agitated behavior. impulsive, agitated at times, improving mildly. Confrontational Speech: Patient's speech is fluent and nonpressured. Mumbling, improving mildly. soft tone Mood/Affect: Patient reports their mood is "same", affect is congruent and constricted. Improving mildly Suicidality/Homicidality: Patient denies having any homicidal ideation intent or plan. Denies any suicidal ideations, no intent or plan. Perceptions: Patient denies any visual hallucinations and denies any auditory hallucinations Though content/process: Bizarre content at times, illogical. Poverty of content. minimizing his need for treatment. Improving mildly Memory and concentration: alert and oriented x 3 Judgment and insight: Chronically limited/poor/impulsive IMPRESSIONS: Schizoaffective disorder, bipolar type Cannabis use disorder Nicotine dependence PLAN: -Patient is admitted under involuntary status to MHU for stabilization of psychiatric symptoms and safety. Patient has not signed adult voluntary form and medication consent and is placed in patient's chart -Medications : decrease/taper off Risperdal p.o. 2 mg bid for psychosis/mood stabilization and d/c after morning dose. given Invega sustenna 234 mg IM on 02/26 next dose of 156 mg IM will be due on 03/03. Decrease Depakote 1000 mg nightly + 500 mg daily and for mood stabilization/agitation. BuSpar 30 mg twice daily for anxiety, Cymbalta 60 mg daily for mood/anxiety. clonidine 0.1 mg twice daily for sleep/impulsivity. lithobid 450 mg hs for mood stabilization/aggression -Depakote level -142 which is elevated -Check EKG -Ativan and Haldol PRN for agitation/aggression -NRT - nicotine patch - on board for discharge planning. Encourage patient to participate in groups to work on coping skills. Patient ended up signing deferral agreeing to treatment, due to patient's severe symptoms history of aggression and noncompliance part of the treatment plan will be to transition patient on to long-acting injection. Patient received first long-acting injection, awaiting second dose on Tuesday. Possible discharge early next week if patient is improving and has a safe place to be discharged to him. [facility] and patient's guardians will attempt to coordinate a place for patient to go, he apparently has a apartment that he can go to March 08.
[2025-02-27] MEDS: risperiDONE ODT 2 MG TAB PO SCH (20:30)
[2025-02-28] MEDS: IBUPROFEN 600 MG TAB PO PRN (09:05)
--- NOTE | 2025-02-28 13:42 | P.PN ---
Progress Note - Text Progress Note Date: 02/28/25 Interval history: Patient was seen today for psychiatric follow-up. Patient was wandering the h allways. Patient has been taking part in some groups socializing with others on the unit. Hygiene and grooming appear to be improving. He was less focused today on discharge less confrontational and agitated with loan underwriter. He asked more questions about his situation medications and also discharge planning to the new apartment. He continues to be a bit unpredictable at times was seen yelling thi s morning. He claims that he slept fairly last night has been eating. Denies any depression or anxiety. Continues to be fairly unpredictable and very poor insight and poor judgment, however this is improving mildly. He is denying any auditory or visual hallucinations denies any suicidal or homicidal ideations intent or plan. MENTAL STATUS EXAM: General Appearance: Patient appears to be thin, stated age is alert, less responding to internal stimuli today. Patient appears to have improving mildly hygiene and grooming. Behavior: Patient is seated without any agitated behavior. impulsive, agitated at times, improving mildly. less Confrontational, more cooperative Speech: Patient's speech is fluent and nonpressured. Mumbling, improving mildly. soft tone Mood/Affect: Patient reports their mood is "ok", affect is congruent and Improving mildly Suicidality/Homicidality: Patient denies having any homicidal ideation intent or plan. Denies any suicidal ideations, no intent or plan. Perceptions: Patient denies any visual hallucinations and denies any auditory hallucinations Though content/process: Bizarre content at times, more logical today. Poverty of content. Denying any paranoia improving mildly Memory and concentration: alert and oriented x 3 Judgment and insight: Chronically limited/poor/impulsive, improving mildly IMPRESSIONS: Schizoaffective disorder, bipolar type Cannabis use disorder Nicotine dependence PLAN: -Patient is admitted under involuntary status to MHU for stabilization of psychiatric symptoms and safety. Patient has not signed adult voluntary form and medication consent and is placed in patient's chart -Medications : d/c Risperdal p.o. recieved Invega sustenna 234 mg IM on 02/26 next dose of 156 mg IM will be due on 03/03. Depakote 1000 mg nightly + 500 mg daily and for mood stabilization/agitation. BuSpar 30 mg twice daily for anxiety, Cymbalta 60 mg daily for mood/anxiety. clonidine 0.1 mg twice daily for sleep/impulsivity. lithobid 450 mg hs for mood stabilization/aggression -Depakote level -142 which is elevated -Ativan and Haldol PRN for agitation/aggression -NRT - nicotine patch - on board for discharge planning. Encourage patient to participate in groups to work on coping skills. Patient ended up signing deferral agreeing to treatment, due to patient's severe symptoms history of aggression and noncompliance part of the treatment plan will be to transition patient on to long-acting injection. Patient received first long-acting injection, awaiting second dose on Tuesday. Possible discharge early next week if patient is impr oving and has a safe place to be discharged to him. [facility] and patient's guardians will attempt to coordinate a place for patient to go, he apparently has a apartment that he can go to March 08.
[2025-02-28] MEDS: MAG HYDROX/AL HYDROX/SIMETH 355 ML BOTTLE PO PRN (17:04)
[2025-02-28] MEDS: DIVALPROEX 500 MG TABLET.DR PO SCH (20:24)
--- NOTE | 2025-03-01 12:05 | P.PN ---
Progress Note - Text Progress Note Date: 03/01/25 Interval history: Patient was seen today for psychiatric follow-up. Patient was wandering the h allways earlier today, on the phone and also sitting alone reading a book. Generation Technologist spoke with patient today, he was agreeable to speak. To be calmer today and more pleasant with insurance writer. He states that he has been feeling a bit better, his thought process appears to be more organized goal oriented. He did speak about being frustrated with injections in the past and we spoke more about the side effects risks and benefits he asked several questions about it. Claims that he slept fairly last night denying any depression or anxiety. He continues to ask and wonder about his discharge planning and his apartment when it will be ready. Improving insight and judgment. He is denying any auditory or visual hallucinations denies any suicidal or homicidal ideations intent or plan. MENTAL STATUS EXAM: General Appearance: Patient appears to be thin, stated age is alert, more cooperative today. Patient appears to have improving mildly hygiene and grooming. Behavior: Patient is seated without any agitated behavior. Less impulsive, more cooperative Speech: Patient's speech is fluent and nonpressured. Mumbling, improving mildly. soft tone Mood/Affect: Patient reports their mood is "good", affect is congruent and constricted, improving mildly Suicidality/Homicidality: Patient denies having any homicidal ideation intent or plan. Denies any suicidal ideations, no intent or plan. Perceptions: Patient denies any visual hallucinations and denies any auditory hallucinations Though content/process: more logical today. Poverty of content. Denying any paranoia improving mildly Memory and concentration: alert and oriented x 3 Judgment and insight: Chronically limited/poor, improving mildly IMPRESSIONS: Schizoaffective disorder, bipolar type Cannabis use disorder Nicotine dependence PLAN: -Patient is admitted under involuntary status to MHU for stabilization of psychiatric symptoms and safety. Patient has not signed adult voluntary form and medication consent and is placed in patient's chart -Medications : Recieved Invega sustenna 234 mg IM on 02/26 next dose of 156 mg IM will be due on 03/03. Depakote 1000 mg nightly + 500 mg daily and for mood stabilization/agitation. BuSpar 30 mg twice daily for anxiety, Cymbalta 60 mg daily for mood/anxiety. clonidine 0.1 mg twice daily for sleep/impulsivity. lithobid 450 mg hs for mood stabilization/aggression -Check lithium level Tuesday morning -Ativan and Haldol PRN for agitation/aggression -NRT - nicotine patch - on board for discharge planning. Encourage patient to participate in groups to work on coping skills. Patient ended up signing deferral agreeing to treatment, due to patient's severe symptoms history of aggression and noncompliance part of the treatment plan will be to transition patient on to long-acting injection. Patient received first long-acting injection, awaiting second dose on Tuesday. Will plan for discharge Tuesday if patient is improving and has a safe place to be discharged to him. [facility] and patient's guardians will attempt to coordinate a place for patient to go
[2025-03-01] MEDS: ACETAMINOPHEN TAB 325 MG TAB PO PRN (20:58)
[2025-03-02] MEDS: diphenhydrAMINE 50 MG/ML 1 ML VIAL IM STA ×2 (21:05→21:36)
[2025-03-03] MEDS: chlorproMAZINE 25 MG TAB PO SCH (10:40)
[2025-03-03] MEDS: PALIPERIDONE IM 156 MG/ML SYG IM ONE (10:58)
--- NOTE | 2025-03-03 22:36 | P.PN ---
Progress Note - Text Progress Note Date: 03/02/25 Interval history: Patient was seen today at the nurses station. His behavior and affect appear od d, his speech appears somewhat slow, thoughts appear concrete. Responses are minimal. He denies any needs or concerns so far today, claims he is doing ok. He is denying any auditory or visual hallucinations denies any suicidal or homicidal ideation, intent or plan. He has been compliant with his medications and denies any reported side effects. Later in the evening he became very agitated when found by staff in a female peer's room. Security was called and he was given a Ativan 2 mg IM x 1, Thorazine 50 mg IM x 1, and Benadryl 50 mg IM x 1 for severe agitation. [place] level on 03/02/25 is 0.3 (low). Valproic acid level on 02/27/25 was 142.1, dose was held/reduced. MAR reviewed and he has required Thorazine 50 mg PRN 1-2 times per day most days. MENTAL STATUS EXAM: General Appearance: Patient appears to be thin, stated age, fair hygiene/grooming Behavior: Patient is standing without any agitated behavior. Less impulsive, more cooperative, until later in the evening he became severely agitated and required PRNs. Speech: Patient's speech is fluent and non-pressured. Mumbling, improving mildly. soft tone Mood/Affect: Patient reports their mood is "fine", affect is congruent and cons tricted, improving mildly Suicidality/Homicidality: Patient denies having any homicidal ideation intent or plan. Denies any suicidal ideations, no intent or plan. Perceptions: Patient denies any visual hallucinations and denies any auditory hallucinations Though content/process: Poverty of thought, [place] Memory and concentration: alert and oriented x 3 Judgment and insight: Chronically limited/poor IMPRESSIONS/PLAN: -Continue current diagnoses. -Medications: Start Thorazine 25 mg TID scheduled starting Tuesday AM for psychosis. -Ativan and Haldol PRN for agitation/aggression -NRT - nicotine patch -Encourage patient to participate in groups to work on coping skills.
--- NOTE | 2025-03-03 22:46 | P.MHFACE ---
Face to Face Restrain/Seclus - Evaluation Patient's Immediate Situation: Endangers staff safety Patient's Immediate Situation - Comment: Patient is severely agitated, hitting wall, smashed cup of water onto the floor, threatening gestures towards staff, verbalizing threats towards staff. Patient's Reaction to the Intervention: Angry Patient's Reaction to the Intervention - Comment: Patient states he doesn't want to be spoken to Patient's Medical & Behavioral Condition: Awake, Alert Patient's Medical & Behavioral Condition - Comment: patient laying on the floor, awake, respirations normal, states he doesn't want to to talk or be spoken to Need to Continue or Terminate Restraint or Seclusion: Terminate Face to Face Eval of Restraint Date: 03/02/25 Face to Face Eval of Restraint Time: 20:53
--- NOTE | 2025-03-03 22:50 | P.PN ---
Progress Note - Text Progress Note Date: 03/03/25 Interval history: Patient was seen today eating his dinner. He appears calm, not agitated. He had been sleeping prior to dinner. His behavior and affect appear odd, his speech appears somewhat slow, thoughts appear concrete, minimal responses. He denies any concerns currently. MENTAL STATUS EXAM: General Appearance: Patient appears to be thin, stated age, fair hygiene/grooming Behavior: Patient is standing without any agitated behavior. Less impulsive, more cooperative, Speech: Patient's speech is fluent and non-pressured. Mumbling, improving mildly. soft tone Mood/Affect: Patient reports their mood is "ok", affect is congruent and constricted, improving mildly Suicidality/Homicidality: Patient denies having any homicidal ideation intent or plan. Denies any suicidal ideations, no intent or plan. Perceptions: Patient denies any visual hallucinations and denies any auditory hallucinations Though content/process: Poverty of thought, [place] Memory and concentration: alert and oriented x 3 Judgment and insight: Chronically limited/poor IMPRESSIONS/PLAN: -Continue current diagnoses. -Medications: Start Thorazine 25 mg TID scheduled started this morning and will continue at this dose. Will defer to primary psychiatrist to taper down if necessary. He received his second dose of Invega Sustenna 156 mg IM this morning. -Ativan and Haldol PRN for agitation/aggression -NRT - nicotine patch -Encourage patient to participate in groups to work on coping skills.
[2025-03-04] MEDS ORDERED: chlorproMAZINE 25 MG/ML 2 ML AMP IM PRN (11:04)
[2025-03-04] MEDS ORDERED: chlorproMAZINE 25 MG TAB PO PRN (11:04)
[2025-03-04] MEDS: ZIPRASIDONE 20 MG VIAL IM PRN (13:00)
[2025-03-04] MEDS: diphenhydrAMINE 50 MG/ML 1 ML VIAL IM PRN (13:00)
[2025-03-04] MEDS: LITHIUM CARBONATE 300 MG CAP PO SCH (13:26)
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
[2025-03-04] MEDS: chlorproMAZINE 25 MG TAB PO SCH (20:27)
[2025-03-04 22:32] VITALS: PULSE 77; RESP 18
[2025-03-05 08:46] VITALS: BP 128/71; TEMP 97.4
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
== END 2025-03-05 14:11 | disposition home or self-care (01) | DRG 885 ==
LOC: EC 11:39 → 3MHU 14:57
PROVIDERS: ADMIT Psychiatry & Neurology Psychiatry; ATTEND Psychiatry & Neurology Psychiatry
DX: F25.0 Schizoaffective disorder, bipolar type (principal); R45.851 Suicidal ideations; F12.10 Cannabis abuse, uncomplicated; F90.9 Attention-deficit hyperactivity disorder, unspecified type; F17.200 Nicotine dependence, unspecified, uncomplicated; F41.9 Anxiety disorder, unspecified; F43.10 Post-traumatic stress disorder, unspecified; Z79.899 Other long term (current) drug therapy; Z78.1 Physical restraint status; Z11.52 Encounter for screening for COVID-19; Z60.2 Problems related to living alone; Z28.310 Unvaccinated for COVID-19; Z28.21 Immunization not carried out because of patient refusal; Z56.0 Unemployment, unspecified; Z88.8 Allergy status to other drugs, medicaments and biological substances; Z86.14 Personal history of Methicillin resistant Staphylococcus aureus infection
CPT/HCPCS: 80053; 80061; 80164; 80178; 80306; 81003; 82075; 83036; 84443; 85025; 87635; 96372; 99285